=== PATIENT | female | born 1965 | race Caucasian/White ===

== ENCOUNTER → 2018-09-02 | Outpatient (CLI) | payer BC ==
[~2018-09-02] MED LIST: CIPR500 PO; CYCL10 PO; HYDACE5 PO; IBUP800 PO; METR500 PO; MULTI VITAMIN1 EACH PO; ONDA4 PO
== END ==
LOC: LAB SHORT 16:36 → LAB 16:36
DX: R19.7 Diarrhea, unspecified (principal); R11.10 Vomiting, unspecified
CPT/HCPCS: 87493

== ENCOUNTER 2018-11-30 08:27 | Day surgery (SDC) | payer BC ==
[~2018-11-30] VITALS: Ht 182.9 cm; Wt 68.5 kg
--- NOTE | 2018-11-30 09:24 | NUR ---
11/30/18 0924 Mauro Rivers 1ST IV ATTEMPT IN RFA UNSUCCESSFUL, ORSC.BDK 2ND IV ATTEMPT IN RAC SUCCESSFUL, ORSC.BDK
--- NOTE | 2018-11-30 10:29 | NUR ---
11/30/18 1029 Lisset Rust CECUM NOT REACHED. PROCEDURE ABORTED AT 1028
== END 2018-11-30 10:50 | disposition home or self-care (01) ==
LOC: ORSCSDS 08:27
PROVIDERS: Surgery
PROC: 0DJD8ZZ Inspection of Lower Intestinal Tract, Via Natural or Artificial Opening Endoscopic (ICD-10-PCS; principal; 2018-11-30 10:45)
DX: K57.20 Diverticulitis of large intestine with perforation and abscess without bleeding (principal); K56.699 Other intestinal obstruction unspecified as to partial versus complete obstruction; F17.210 Nicotine dependence, cigarettes, uncomplicated
CPT/HCPCS: J2405; J7120

== ENCOUNTER 2019-04-07 06:11 | Inpatient (IN) | payer BC ==
[~2019-04-07] VITALS: Ht 208.3 cm; Wt 68.3 kg
--- NOTE | 2019-04-07 07:05 | NUR ---
Ambulatory in Day Surgery Patient states colon prep results clear. History, Chart, Medications and Allergies reviewed before start of procedure. Lungs clear T/O to Auscultation. Patient confirms NPO status and agrees with scheduled surgery. Pre-Op teaching done. Pt verbalizes understanding.
--- NOTE | 2019-04-07 14:38 | NUR ---
"SURFACE SUPPLY BREATHING APPARATUS | REPORT FROM PAIGE FERMIN Handoff from Paige FERMIN. Patient sleeping. VSS. Responds to questions appropiately. Sites c/d/i. Preciado draining. DEVORA draining. Epidural running and checked settings with Merrick FERMIN. Warmer on patient. Pedal pulses good and circ check good in feet bilaterally. Patient denies pain and nausea."
--- NOTE | 2019-04-07 16:00 | NUR ---
EPIDURAL SITE QUARTER SIZE AMOUNT OF BLOOD AT EPIDURAL INSERTION SITE AT TIME OF ARRIVAL TO ROOM FROM PACU.
--- NOTE | 2019-04-07 16:59 | NUR ---
PT ARRIVED TO THE ROOM AT APPROXIMATELY 1530. ALERT AND ORIENTED AT UPON ARRIVING TO THE ROOM. VSS. FAMILY AT BEDSIDE. PT REPORTS PAIN IS MANAGED. DENIES NAUSEA, CHEST PAIN AND SOB. VSS. WILL CONTINUE TO MONITOR.
--- NOTE | 2019-04-07 18:37 | NUR ---
SHIFT SUMMARY PAIN HAS BEEN MANAGED WELL WITH EPIDURAL POST-OP. PT TOLERATING ICE CHIPS. DENIES NAUSEA. VSS. WILL MONITOR UNTIL REPORT TO ONCOMING RN.
--- NOTE | 2019-04-07 20:15 | NUR ---
epidural site with approx quarter sized area of bleed contained under dressing.pt has decreased sensation of moist vs dry at level directly above lower guaze dsngs and wound vac dsng. pt has limited sensation noted entire r leg with report of intermittent sensation of tingling. pt has limited gross motor control of r leg. pt is able to lift r leg slightly off bed and wiggles toes bilat. pedal pulses present bilat.
[2019-04-08 04:42] LABS: BASOPHILS ABSOLUTE AUTO 0.02 K/mm3 (0.00-0.23); BASOPHILS PERCENT AUTO 0 % (0-2); EOSINOPHILS ABSOLUTE AUTO 0.24 K/mm3 (0.00-0.68); EOSINOPHILS PERCENT AUTO 2 % (0-6); Hematocrit 38.6 % (33.0-51.0); Hemoglobin 12.5 g/dL (11.5-16.0); IMMATURE GRAN ABSOLUTE AUTO 0.04 K/mm3 (0.00-0.10); IMMATURE GRAN PERCENT AUTO 0 % (0-1); LYMPHOCYTES PERCENT AUTO 8 % (21-46); MONOCYTES PERCENT AUTO 13 % (4-13); Mean Corpuscular HGB Conc 32.4 g/dL (31.5-36.5); Mean Corpuscular Volume 93 fL (80-100); Mean Platelet Volume 11.3 fL (9.1-12.4); NEUTROPHILS ABSOLUTE AUTO 8.87 K/mm3 (1.96-9.15); NEUTROPHILS PERCENT AUTO 77 % (41-73); Platelet Count 176 K/mm3 (150-400); RDW Coefficient Variation 13.6 % (11.7-14.2); RDW Standard Deviation 46.8 fL (35.1-46.3); Red Blood Cell Count 4.16 M/mm3 (3.80-5.20); White Blood Cell Count 11.57 K/mm3 (4.00-11.30)
--- NOTE | 2019-04-08 04:53 | NUR ---
SUMMARY I SPOKE WITH DR BRISCOE AT 2144 TO ADVISE OF PTS NUMBNESS R THIGH WITH LIMITED GROSS MOTOR CONTROL NOTED WITH EPIDURAL CKS, ALSO NOTIFIED OF HYPOTENSION.DR BRISCOE ADVISED TO KEEP PT BEDREST TONIGHT AND RECOMMENDS DAY NURSE DISCUSS WITH IMMANUEL VARGAS ANESTHESIA DURING DAY THE POSSIBLITY OF DECREASING DOSING TO IMPROVE SAFETY OF ACTIVITY.
[2019-04-08 05:02] LABS: Anion Gap 3 mmol/L (6-16); Blood Urea Nitrogen 8 mg/dL (8-24); Bun/Creatinine Ratio 11.3 (12.0-20.0); CO2, Blood 30 mmol/L (21-32); Calcium, Blood 8.1 mg/dL (8.5-10.1); Chloride, Blood 108 mmol/L (98-108); Creatinine, Blood 0.71 mg/dL (0.40-1.00); Glomerular Filtration Rate >60 (60-); Glucose, Blood 105 mg/dL (70-99); Potassium, Blood 3.6 mmol/L (3.5-5.5); Sodium, Blood 141 mmol/L (136-145)
--- NOTE | 2019-04-08 10:47 | NUR ---
0700 EPIDURAL PATIENT REPORTS DECREASED SENSATION FROM 2" ABOVE UMBILICUS TO MID THIGH ON LEFT LEG. PATIENT REPORTS DECREASED SENSATION ENTIRE RIGHT LEG, GROSS MOVEMENT ONLY TO RIGHT LEG. PATIENT ABLE TO RAISE LEFT LEG OFF BED
--- NOTE | 2019-04-08 10:49 | NUR ---
EPIDURAL DECREASED SENSATION FROM 2" ABOVE UMBILICUS TO MID THIGH OF LEFT LEG. PATIENT ABLE TO RAISE LEFT LEG OFF BED. PATIENT WITH DECREASED SENSATION ENTIRE RIGHT LEG. GROSS MOVEMENT TO RIGHT LEG, UNABLE TO RAISE RIGHT LEG OFF OF BED
--- NOTE | 2019-04-08 10:52 | NUR ---
EPIDURAL DECREASED SENSATION FRO 2' above umbilicus to mid thigh of left leg. patient able to raise left leg off of bed. patient with decreased sensation to entire right leg, has gross movement but unable to raise off of bed
--- NOTE | 2019-04-08 10:53 | NUR ---
epidural DECREASED SENSATION FROM 2' above umbilicus to mid thigh of left leg. patient able to lift left leg off bed. patient with decreased sensation entire right leg. right leg with gross movement but unable to raise off of bed
--- NOTE | 2019-04-08 11:02 | NUR ---
EPIDURAL DECREASED SENSATION FROM 2" ABOVE UMBILICUS TO MID THIGH OF LEFT LEG. PATIENT ABLE TO RAISE LEFT LEG OFF OF BED. DECREASED SENSATION ENTIRE RIGHT LEG AND UNABLE TO LIFT OFF OF BED. PATIENT STATES SHE FEELS LIKE SLIGHTLY MORE MOVEMENT TO RIGHT LEG THAN SHE HAD AT 1000 ASSESSMENT.
--- NOTE | 2019-04-08 12:18 | NUR ---
EPIDURAL DECREASED SENSATION FROM 2' above umbilicus to mid thigh on left. patient able to raise left leg off of bed. decrease right leg sensation and patient with gross movement but unable to lift off of bed
--- NOTE | 2019-04-08 13:52 | NUR ---
epidural patient with decreased sensation from 2" above umbilicus to midthigh on bilateral legs/ patient able to raise left leg off the bed and able to raise right heel slightly off of bed
--- NOTE | 2019-04-08 14:42 | NUR ---
04/08/19 1442 Jess Griffin CHART VERIFICATIONS.
--- NOTE | 2019-04-08 17:53 | NUR ---
summary received telephone call from dr colvin anesthesia. discussed with dr colvin that patient can raise left leg off bed and can at this time bend right leg at knee and almost raise leg off of bed. patient has change in sensation at 2" ABOVE GROIN. PATIENT REPORTS CURRENT PAIN LEVEL AT 3/10. EPIDURAL TAPED IN PLACE, QUARTER SIZE OLD BLOODY DRAINAGE AT EPIDURAL INSERTION SITE. PREVENA WITH NO DRAINAGE. DEVORA DRAIN WITH SEROSANGUINOUS DRAINAGE
--- NOTE | 2019-04-09 07:37 | NUR ---
SHIFT SUMMARY: PT POD #2 FOR SIG COLECTOMY. PROVENA AND EDVORA DRAIN INTACT. DEVORA DRAINING SS FLUID. GALLAGHER DRAINING YELLOW URINE. EPIDURAL IN PLACE WITH SMALL AMT OF BLOODY DRG SURROUNDING SITE. NO LEAKAGE NOTED. PT REPORTS RIGHT LEG IS STILL NUMB TO MID ABD. REPORTS SENSATION TO LEFT LEG IS INTACT WITH MILD NUMBNESS TO LEFT SIDE OF ABD. WEAKNESS TO BLE. GIVEN TYLENOL AND GABAPENTIN IN ADDITION TO EPIDURAL. PT REPORTS PAIN IS MANAGEABLE. RATING 2-3/10 ON PAIN SCALE. DENIES N/V. KAELYN CLR LIQ DIET. WHEEZING TO LUNGS HEARD UPON AUSCULATION. HX OF SMOKING.
--- NOTE | 2019-04-09 08:34 | NUR ---
EPIDURAL DR. COOLEY IN TO ROUND ON PT. EPIDURAL SITE WNL. VERBAL ORDER TO DECREASE RATE TO 8 DOWN FROM 10.
--- NOTE | 2019-04-09 16:13 | NUR ---
SHIFT SUMMARY NO ACUTE CHANGES THIS SHIFT. PT CONT TO DO WELL. EPIDURAL MANAGING PAIN AND SITE WNL. PLAN IS FOR EPIDURAL TO BE DC'D TOMORROW. LAP SITES AND PREVENA DRESSING REMAIN CDI. DEVORA DRAIN WITH MINIMAL OUTPUT. PT KAELYN FULL LIQ AND PASSING GAS. UP TO CHAIR X1 TODAY. USES CALL LIGHT APPROPRIATELY.
--- NOTE | 2019-04-10 07:46 | NUR ---
SHIFT SUMMARY PT POD#3. AAOX4. DISCOMFORT CONTROLLED WITH EPIDURAL T/O SHIFT. NO NAUSEA/EMESIS. ABD INCISION WITH PREVENA C/D/I, NO OUTPUT. DEVORA SECURE WITH MODERATE AMOUNT SS OUT. TOLERATING DIET WELL + GOOD OUTPUT VIA GALLAGHER. EPIDURAL EXPECTED TO BE DC'D THIS AM. PT RESTED WELL T/O NIGHT. ENCOURAGE AMBULATION TODAY, DEEP BREATHING AND DIET TOLERATED. REPORT TO DAY SHIFT RN.
--- NOTE | 2019-04-11 07:49 | NUR ---
SHIFT SUMMARY POD#4. AAOX4. DRESSING TO ABD WITH PREVENA C/D/I, NO DRAINAGE. DEVORA SECURE WITH 110cc OUT THIS SHIFT SS. INDEPENDENT IN ROOM. GOOD PO INTAKE + OUTPUT. BM X2 PER PT YESTARDAY. VSS. NO ACUTE CHANGES THIS SHIFT. REPORT TO DAY SHIFT RN. PT AWAKE IN BED WITH HOT TEA WATCHING TV. CALL LIGHT IN REACH.
[2019-04-11] MEDS ORDERED: Norco 5-325 Ta1 EACH PO (07:52)
--- NOTE | 2019-04-11 09:48 | NUR ---
DISCHARGE PT UNDERSTANDS DISCHARGE INSTRUCTIONS. TOLERATING DIET, VOIDING, PASSING GAS, AND PAIN WELL MANAGED. AMBULATING INDEPENDTLY. SCRIPT AND DRSGS GIVEN.
== END 2019-04-11 10:30 | disposition home or self-care (01) | DRG 330 ==
LOC: PRE IP 06:11 → SURS 06:11 → PRE IP 07:30 → SURS 16:20
PROVIDERS: ADMIT Surgery
PROC: 0D1N474 Bypass Sigmoid Colon to Cutaneous with Autologous Tissue Substitute, Percutaneous Endoscopic Approach (ICD-10-PCS; 2019-04-07)
PROC: 0DTN4ZZ Resection of Sigmoid Colon, Percutaneous Endoscopic Approach (ICD-10-PCS; principal; 2019-04-07 07:30)
DX: K56.609 Unspecified intestinal obstruction, unspecified as to partial versus complete obstruction (principal); K57.20 Diverticulitis of large intestine with perforation and abscess without bleeding
CPT/HCPCS: 36415; 80048; 85025; 86850; 86900; 86901; 88307; A9270; J0690; J1650; J2250; J2704; J2710; J3010; J7030; J7120

== ENCOUNTER 2019-09-13 10:49 | Inpatient (IN) | payer BC ==
[~2019-09-13] VITALS: Ht 182.9 cm; Wt 72.4 kg
[~2019-09-13 10:49] MED LIST changes: +Norco 5-325 Ta1 EACH PO
[2019-09-13 12:41] LABS: BASOPHILS ABSOLUTE AUTO 0.07 K/mm3 (0.00-0.23); BASOPHILS PERCENT AUTO 0 % (0-2); EOSINOPHILS ABSOLUTE AUTO 0.03 K/mm3 (0.00-0.68); EOSINOPHILS PERCENT AUTO 0 % (0-6); Hemoglobin 12.3 g/dL (11.5-16.0); IMMATURE GRAN ABSOLUTE AUTO 0.63 K/mm3 (0.00-0.10); IMMATURE GRAN PERCENT AUTO 2 % (0-1); LYMPHOCYTES ABSOLUTE AUTO 1.94 K/mm3 (0.84-5.20); LYMPHOCYTES PERCENT AUTO 7 % (21-46); MONOCYTES ABSOLUTE AUTO 2.32 K/mm3 (0.16-1.47); MONOCYTES PERCENT AUTO 9 % (4-13); Mean Corpuscular HGB 30.8 pg (26.0-34.0); Mean Corpuscular HGB Conc 33.2 g/dL (31.5-36.5); Mean Corpuscular Volume 93 fL (80-100); Mean Platelet Volume 10.8 fL (9.1-12.4); NEUTROPHILS ABSOLUTE AUTO 21.85 K/mm3 (1.96-9.15); NEUTROPHILS PERCENT AUTO 82 % (41-73); Platelet Count 312 K/mm3 (150-400); RDW Coefficient Variation 13.1 % (11.7-14.2); RDW Standard Deviation 44.8 fL (35.1-46.3); White Blood Cell Count 26.84 K/mm3 (4.00-11.30)
[2019-09-13 12:56] LABS: Alanine Aminotransfer (ALT/SGP 69 U/L (12-78); Albumin, Blood 3.1 g/dL (3.4-5.0); Albumin/Globulin Ratio 0.7 (0.8-1.8); Alk Phos 238 U/L (50-136); Anion Gap 9 mmol/L (6-16); Aspartate Aminotrans (AST/SGOT 42 U/L (12-37); Bilirubin, Total 0.5 mg/dL (0.1-1.0); Blood Urea Nitrogen 6 mg/dL (8-24); Bun/Creatinine Ratio 9.2 (12.0-20.0); CO2, Blood 32 mmol/L (21-32); Calcium, Blood 8.9 mg/dL (8.5-10.1); Chloride, Blood 97 mmol/L (98-108); Creatinine, Blood 0.65 mg/dL (0.40-1.00); Globulin, Blood 4.5 g/dL (2.2-4.0); Glomerular Filtration Rate >60 (60-); Glucose, Blood 119 mg/dL (70-99); Potassium, Blood 2.9 mmol/L (3.5-5.5); Sodium, Blood 138 mmol/L (136-145); Total Protein, Blood 7.6 g/dL (6.4-8.2)
[2019-09-13 14:57] LABS: Adenovirus Not Detected (NOT DETECT); Bordetella pertussis Not Detected (NOT DETECT); Chlamydophila pneumoniae Not Detected (NOT DETECT); Coronavirus 229E Not Detected (NOT DETECT); Coronavirus HKU1 Not Detected (NOT DETECT); Coronavirus NL63 Not Detected (NOT DETECT); Coronavirus OC43 Not Detected (NOT DETECT); Human Metapneumovirus Not Detected (NOT DETECT); Human Rhinovirus/Enterovirus Detected (NOT DETECT); Influenza A Not Detected (NOT DETECT); Influenza A/2009-H1 Not Detected (NOT DETECT); Influenza A/H1 Not Detected (NOT DETECT); Influenza A/H3 Not Detected (NOT DETECT); Influenza B Not Detected (NOT DETECT); Mycoplasma pneumoniae Not Detected (NOT DETECT); Parainfluenza Virus 1 Not Detected (NOT DETECT); Parainfluenza Virus 2 Not Detected (NOT DETECT); Parainfluenza Virus 3 Not Detected (NOT DETECT); Parainfluenza Virus 4 Not Detected (NOT DETECT); Respiratory Syncytial Virus Not Detected (NOT DETECT)
--- NOTE | 2019-09-13 17:27 | NUR ---
SHIFT SUMMARY. 1603 PT ADMITTED TO MEDICAL FLOOR VIA BOYD, DAUGHTER AT BEDSIDE. PT SELF TRANSFERRED TO BED WITHOUT ISSUE. PT IS ON 4L O2 NC WITH SPO2 GREATER THAN 92%, PT DENIES SOB, RR WNL, SET UP ON CONT BIOX. BREATH SOUNDS R LUNG RHONCHI AND COARSE IN L LUNG. IV FLUIDS INFUSING.
[2019-09-14 05:33] LABS: BASOPHILS ABSOLUTE AUTO 0.04 K/mm3 (0.00-0.23); BASOPHILS PERCENT AUTO 0 % (0-2); EOSINOPHILS PERCENT AUTO 0 % (0-6); Hematocrit 31.9 % (33.0-51.0); Hemoglobin 10.3 g/dL (11.5-16.0); IMMATURE GRAN ABSOLUTE AUTO 0.84 K/mm3 (0.00-0.10); IMMATURE GRAN PERCENT AUTO 4 % (0-1); LYMPHOCYTES ABSOLUTE AUTO 1.36 K/mm3 (0.84-5.20); LYMPHOCYTES PERCENT AUTO 7 % (21-46); MONOCYTES ABSOLUTE AUTO 1.35 K/mm3 (0.16-1.47); MONOCYTES PERCENT AUTO 7 % (4-13); Mean Corpuscular HGB 29.9 pg (26.0-34.0); Mean Corpuscular HGB Conc 32.3 g/dL (31.5-36.5); Mean Corpuscular Volume 93 fL (80-100); Mean Platelet Volume 10.7 fL (9.1-12.4); NEUTROPHILS ABSOLUTE AUTO 17.32 K/mm3 (1.96-9.15); NEUTROPHILS PERCENT AUTO 83 % (41-73); Platelet Count 292 K/mm3 (150-400); RDW Coefficient Variation 13.4 % (11.7-14.2); RDW Standard Deviation 45.6 fL (35.1-46.3); Red Blood Cell Count 3.45 M/mm3 (3.80-5.20); White Blood Cell Count 20.91 K/mm3 (4.00-11.30)
--- NOTE | 2019-09-14 05:54 | NUR ---
SHIFT SUMMARY NO ACUTE EVENTS OVERNIGHT. PATIENT HAS STRESS INCONTINENCE BUT UP INDEPENDENT TO BSC. AAOX4. VSS. PATIENT ON 4L NC AT BEGINNING OF SHIFT SPO2 90%. WAS ABLE TO LOWER O2 TO 2L NC WITH PATIENT SPO2 94%. WILL CONTINUE TO MONITOR AND REPORT TO ONCOMING SHIFT
[2019-09-14 06:04] LABS: Alanine Aminotransfer (ALT/SGP 70 U/L (12-78); Albumin, Blood 2.4 g/dL (3.4-5.0); Albumin/Globulin Ratio 0.6 (0.8-1.8); Alk Phos 206 U/L (50-136); Anion Gap 7 mmol/L (6-16); Aspartate Aminotrans (AST/SGOT 41 U/L (12-37); Bilirubin, Total 0.3 mg/dL (0.1-1.0); Blood Urea Nitrogen 8 mg/dL (8-24); Bun/Creatinine Ratio 13.3 (12.0-20.0); CO2, Blood 28 mmol/L (21-32); Calcium, Blood 8.3 mg/dL (8.5-10.1); Chloride, Blood 104 mmol/L (98-108); Globulin, Blood 3.7 g/dL (2.2-4.0); Glomerular Filtration Rate >60 (60-); Glucose, Blood 134 mg/dL (70-99); Magnesium, Blood 2.1 mg/dL (1.6-2.4); Potassium, Blood 3.9 mmol/L (3.5-5.5); Sodium, Blood 139 mmol/L (136-145); Total Protein, Blood 6.1 g/dL (6.4-8.2)
--- NOTE | 2019-09-14 18:38 | NUR ---
SHIFT SUMMARY PT INDEPENDENT IN ROOM. SATS DROP WHEN SHE TAKES HER OXYGEN OFF TO LOW 80'S. DENIES ANY PAIN OR NAUSEA. PLACED IN ISOLATION PER PROTOCOL. ATTEMPTED TO NAP AT TIMES BUT STRUGGLED TO REST. WATCHING TV MOST OF THE DAY.
--- NOTE | 2019-09-15 06:05 | NUR ---
SHIFT SUMMARY NO ACUTE EVENTS OVERNIGHT. PATIENT SLEPT THROUGH ENTIRE SHIFT. PATIENT DID STATE THAT SHE WAS DEPRESSED ABOUT HER RESPIRATORY STATUS AND NEEDING O2. AAOX4. VSS. INDEPENDENT IN ROOM. WILL CONTINUE TO MONITOR.
[2019-09-15 08:33] LABS: Hematocrit 34.1 % (33.0-51.0); Mean Corpuscular HGB 29.7 pg (26.0-34.0); Mean Corpuscular HGB Conc 32.3 g/dL (31.5-36.5); Mean Corpuscular Volume 92 fL (80-100); Mean Platelet Volume 10.2 fL (9.1-12.4); Platelet Count 358 K/mm3 (150-400); RDW Coefficient Variation 13.6 % (11.7-14.2); RDW Standard Deviation 46.4 fL (35.1-46.3)
[2019-09-15 08:47] LABS: Anion Gap 6 mmol/L (6-16); Blood Urea Nitrogen 10 mg/dL (8-24); Bun/Creatinine Ratio 15.1 (12.0-20.0); CO2, Blood 29 mmol/L (21-32); Calcium, Blood 8.2 mg/dL (8.5-10.1); Chloride, Blood 103 mmol/L (98-108); Creatinine, Blood 0.66 mg/dL (0.40-1.00); Glomerular Filtration Rate >60 (60-); Glucose, Blood 113 mg/dL (70-99); Potassium, Blood 3.6 mmol/L (3.5-5.5); Sodium, Blood 138 mmol/L (136-145)
[2019-09-15 09:01] LABS: BAND PERCENT MAN 2 % (0-8); BASOPHILS PERCENT MAN 0 % (0-2); EOSINOPHILS PERCENT MAN 0 % (0-6); LYMPHOCYTES ABSOLUTE MAN 2.21 K/mm3 (0.84-5.20); LYMPHOCYTES PERCENT MAN 11 % (21-46); METAMYELOCYTE PERCENT MAN 2 % (0-0); MONOCYTES PERCENT MAN 5 % (4-13); MYELOCYTE PERCENT MAN 1 % (0-0); NEUTROPHILS ABSOLUTE MAN 16.28 K/mm3 (1.96-9.15); SEG NEUTROPHILS PERCENT MAN 79 % (41-73); TOTAL CELLS COUNTED 100
--- NOTE | 2019-09-15 16:48 | NUR ---
SHIFT SUMMARY- PT A/OX4, INDEP UP IN ROOM. LS DIMINISHED, PT REMAINS ON 3L N/C, OCC PRODUCTIVE COUGH BUT PT REPORTS HAS IMPROVED, SOB WITH EXERTION. PT DENIES ANY OTHER COMPLAINTS. NEW IV PLACED. SOLUMEDROL X1 GIVEN THIS SHIFT. NO OTHER ACUTE CHANGES THIS SHIFT.
--- NOTE | 2019-09-16 02:57 | NUR ---
09/15/19 PT RESTING COMFORTABLY IN BED, PT EDUCATED ON NEED TO CONSIDER SMOKING CESSATION WITH ACKNOWLEDGEMENT NOTED, WEARING O2 AT 3L/M PER NASAL CANNULA. VOICED FEELS BETTER TONIGHT, STILL SOB AT TIMES WITH ACTIVITY.
--- NOTE | 2019-09-16 04:21 | NUR ---
SHIFT SUMMARY: 54 Y/O RESTED COMFORTABLY ALL SHIFT WHILE WEARING O2 AT 3L/M PER NASAL CANNULA, PT ENCOURAGED TO CONSIDER SMOKING CESSATION (SMOKES 1-2 PACKS/DAY CURRENTLY) WITH ACKNOWLEDGEMENT NOTED, DENIES PAIN OR NAUSEA, HAPPY AND COOPERATIVE, BED LOW POSITION WITH CALL LIGHT AT SIDE.
[2019-09-16 05:14] LABS: Hematocrit 32.9 % (33.0-51.0); Hemoglobin 10.5 g/dL (11.5-16.0); Mean Corpuscular HGB 29.1 pg (26.0-34.0); Mean Corpuscular HGB Conc 31.9 g/dL (31.5-36.5); Mean Corpuscular Volume 91 fL (80-100); Mean Platelet Volume 10.2 fL (9.1-12.4); Platelet Count 403 K/mm3 (150-400); RDW Coefficient Variation 13.6 % (11.7-14.2); RDW Standard Deviation 45.6 fL (35.1-46.3); Red Blood Cell Count 3.61 M/mm3 (3.80-5.20); White Blood Cell Count 22.98 K/mm3 (4.00-11.30)
[2019-09-16 05:31] LABS: BAND PERCENT MAN 7 % (0-8); BASOPHILS PERCENT MAN 0 % (0-2); EOSINOPHILS PERCENT MAN 0 % (0-6); LYMPHOCYTES ABSOLUTE MAN 1.37 K/mm3 (0.84-5.20); LYMPHOCYTES PERCENT MAN 6 % (21-46); METAMYELOCYTE ABSOLUTE MAN 0.22 K/mm3 (0.00-0.00); METAMYELOCYTE PERCENT MAN 1 % (0-0); MONOCYTES ABSOLUTE MAN 0.45 K/mm3 (0.16-1.47); MONOCYTES PERCENT MAN 2 % (4-13); MYELOCYTE ABSOLUTE MAN 0.68 K/mm3 (0.00-0.00); MYELOCYTE PERCENT MAN 3 % (0-0); NEUTROPHILS ABSOLUTE MAN 20.22 K/mm3 (1.96-9.15); SEG NEUTROPHILS PERCENT MAN 81 % (41-73); TOTAL CELLS COUNTED 100
[2019-09-16 05:46] LABS: Alanine Aminotransfer (ALT/SGP 86 U/L (12-78); Albumin, Blood 2.4 g/dL (3.4-5.0); Albumin/Globulin Ratio 0.6 (0.8-1.8); Alk Phos 184 U/L (50-136); Anion Gap 7 mmol/L (6-16); Aspartate Aminotrans (AST/SGOT 56 U/L (12-37); Bilirubin, Total 0.3 mg/dL (0.1-1.0); Blood Urea Nitrogen 13 mg/dL (8-24); Bun/Creatinine Ratio 21.6 (12.0-20.0); CO2, Blood 30 mmol/L (21-32); Calcium, Blood 8.6 mg/dL (8.5-10.1); Chloride, Blood 102 mmol/L (98-108); Globulin, Blood 3.7 g/dL (2.2-4.0); Glomerular Filtration Rate >60 (60-); Glucose, Blood 125 mg/dL (70-99); Potassium, Blood 4.2 mmol/L (3.5-5.5); Sodium, Blood 139 mmol/L (136-145); Total Protein, Blood 6.1 g/dL (6.4-8.2)
--- NOTE | 2019-09-16 18:14 | NUR ---
SHIFT SUMMARY: NO ACUTE CHANGES TO REPORT THIS SHIFT. PT A&O; CALM AND COOPERATIVE WITH CARE; INDEPENDENT IN ROOM. NO C/O PAIN THIS SHIFT. PT CURRENTLY ON O2 @ 3L TO MAINTAIN SATS, PT ON ROOM AIR AT HOME; LUNGS DIM; CEDS. PO & IV ABX CONTINUING. WCTM.
--- NOTE | 2019-09-17 04:39 | NUR ---
SHIFT SUMMARY: 54 Y/O FEMALE RESTED COMFORTABLY ALL SHIFT, PT HAD ONE EPISODE NOT WEARING O2 WHILE UP BATHROOM WITH O2 SAT 84% WHICH QUICKLY IMPROVED TO 92 ON 3L/M PER NASAL CANNULA, PT HAS INCREASED DYPSNEA WITH SLIGHT ACTIVITY NOTED, LUNG SOUNDS ARE DIMINISHED THROUGHOUT, PT VOICED SHE WANTS TO RETURN HOME TODAY, PT VOICED SHE INTENDS TO RETURN SMOKING (THIS NURSE ENCOURAGED SMOKING CESSATION) UPON DISCHARGE, DENIES PAIN OR NAUSEA, BED LOW POSITION WITH CALL LIGHT AT SIDE.
[2019-09-17 05:05] LABS: BASOPHILS PERCENT AUTO 1 % (0-2); EOSINOPHILS ABSOLUTE AUTO 0.13 K/mm3 (0.00-0.68); EOSINOPHILS PERCENT AUTO 1 % (0-6); Hematocrit 34.4 % (33.0-51.0); IMMATURE GRAN ABSOLUTE AUTO 1.49 K/mm3 (0.00-0.10); IMMATURE GRAN PERCENT AUTO 7 % (0-1); LYMPHOCYTES ABSOLUTE AUTO 4.45 K/mm3 (0.84-5.20); LYMPHOCYTES PERCENT AUTO 21 % (21-46); MONOCYTES ABSOLUTE AUTO 1.22 K/mm3 (0.16-1.47); MONOCYTES PERCENT AUTO 6 % (4-13); Mean Corpuscular HGB 30.1 pg (26.0-34.0); NEUTROPHILS ABSOLUTE AUTO 13.49 K/mm3 (1.96-9.15); NEUTROPHILS PERCENT AUTO 65 % (41-73); Platelet Count 458 K/mm3 (150-400); RDW Coefficient Variation 13.6 % (11.7-14.2); Red Blood Cell Count 3.65 M/mm3 (3.80-5.20); White Blood Cell Count 20.88 K/mm3 (4.00-11.30)
[2019-09-17 05:10] LABS: Mean Corpuscular Volume 94 fL (80-100)
[2019-09-17 05:41] LABS: Alanine Aminotransfer (ALT/SGP 112 U/L (12-78); Albumin, Blood 2.5 g/dL (3.4-5.0); Albumin/Globulin Ratio 0.7 (0.8-1.8); Alk Phos 171 U/L (50-136); Anion Gap 7 mmol/L (6-16); Aspartate Aminotrans (AST/SGOT 63 U/L (12-37); Bilirubin, Total 0.3 mg/dL (0.1-1.0); Blood Urea Nitrogen 15 mg/dL (8-24); Bun/Creatinine Ratio 21.6 (12.0-20.0); CO2, Blood 30 mmol/L (21-32); Calcium, Blood 8.4 mg/dL (8.5-10.1); Chloride, Blood 104 mmol/L (98-108); Globulin, Blood 3.8 g/dL (2.2-4.0); Glomerular Filtration Rate >60 (60-); Glucose, Blood 81 mg/dL (70-99); Sodium, Blood 141 mmol/L (136-145); Total Protein, Blood 6.3 g/dL (6.4-8.2)
[2019-09-17] MEDS ORDERED: AZIT500 PO (14:44)
[2019-09-17] MEDS ORDERED: GUAI600T33 PO (14:45)
[2019-09-17] MEDS ORDERED: ALBU3IS INH (14:51)
--- NOTE | 2019-09-17 16:00 | NUR ---
PATIENT DISCHARGE: PATIENT DISCHARGED TO HOME THIS SHIFT. MEDICATION RECONCILIATION COMPLETED; MED LIST FAXED TO [facility]. DISCHARGE EDUCATION COMPLETED WITH PATIENT. PATIENT TRANSPORTED TO EXIT BY [facility] STAFF WITH WHEELCHAIR AT 1558. PATIENT DEPARTED [facility] VIA PRIVATE AUTO.
== END 2019-09-17 15:57 | disposition home or self-care (01) | DRG 190 ==
LOC: ER 10:49 → MEDS 14:24
PROVIDERS: Emergency Medicine; ADMIT Internal Medicine
DX: J44.1 Chronic obstructive pulmonary disease with (acute) exacerbation (principal); J18.9 Pneumonia, unspecified organism; J44.0 Chronic obstructive pulmonary disease with (acute) lower respiratory infection; E87.6 Hypokalemia; F17.210 Nicotine dependence, cigarettes, uncomplicated; R09.02 Hypoxemia; R91.1 Solitary pulmonary nodule; B97.89 Other viral agents as the cause of diseases classified elsewhere
CPT/HCPCS: 0099U; 36415; 71046; 80048; 80053; 83605; 83735; 85025; 87040; 87070; 87205; 94640; 94762; 96365; 96366; 96367; 96375; 99285-25; J0456; J0696; J1100; J1650; J1956; J2930; J3480; J7030; J7050

== ENCOUNTER 2022-04-28 13:50 | Inpatient (IN) | payer BC ==
[~2022-04-28] VITALS: Ht 185.4 cm; Wt 81.7 kg
[~2022-04-28 13:50] MED LIST changes: +ALBU3IS INH; +AZIT500 PO; +GUAI600T33 PO
[2022-04-28 15:14] LABS: Hematocrit 39.8 % (33.0-51.0); Hemoglobin 13.5 g/dL (11.5-16.0); Mean Corpuscular HGB 29.9 pg (26.0-34.0); Mean Corpuscular HGB Conc 33.9 g/dL (31.5-36.5); Mean Corpuscular Volume 88 fL (80-100); NRBC ABSOLUTE 0.02 K/mm3 (0.00-0.02); NRBC Auto 0.1 /100 WBC (0.0-0.2); Platelet Count 354 K/mm3 (150-400); RDW Coefficient Variation 13.2 % (11.7-14.2); Red Blood Cell Count 4.51 M/mm3 (3.80-5.20); White Blood Cell Count 37.59 K/mm3 (4.00-11.30)
[2022-04-28 15:48] LABS: Albumin, Blood 2.7 g/dL (3.4-5.0); Albumin/Globulin Ratio 0.5 (0.8-1.8); Bilirubin, Total 1.1 mg/dL (0.1-1.0); Bun/Creatinine Ratio 17.5 (12.0-20.0); Calcium, Blood 9.4 mg/dL (8.5-10.1); Creatinine, Blood 0.51 mg/dL (0.40-1.00); Globulin, Blood 5.2 g/dL (2.2-4.0); Potassium, Blood 5.8 mmol/L (3.5-5.5); Total Protein, Blood 7.9 g/dL (6.4-8.2)
[2022-04-28 17:24] LABS: BAND PERCENT MAN 8 % (0-8); BASOPHILS PERCENT MAN 0 % (0-2); EOSINOPHILS PERCENT MAN 0 % (0-6); LYMPHOCYTES ABSOLUTE MAN 1.12 K/mm3 (0.84-5.20); LYMPHOCYTES PERCENT MAN 3 % (21-46); METAMYELOCYTE ABSOLUTE MAN 0.37 K/mm3 (0.00-0.00); METAMYELOCYTE PERCENT MAN 1 % (0-0); MONOCYTES ABSOLUTE MAN 5.63 K/mm3 (0.16-1.47); MONOCYTES PERCENT MAN 15 % (4-13); MYELOCYTE ABSOLUTE MAN 0.37 K/mm3 (0.00-0.00); MYELOCYTE PERCENT MAN 1 % (0-0); NEUTROPHILS ABSOLUTE MAN 30.07 K/mm3 (1.96-9.15); SEG NEUTROPHILS PERCENT MAN 72 % (41-73); TOTAL CELLS COUNTED 100
[2022-04-28 18:33] LABS: Base Excess Venous 9.5 mmol/L; Bicarbonate Venous 31.4 mmol/L (24.0-30.0); PCO2 Venous 55.1 mmHg (38-42)
[2022-04-28 19:38] LABS: Influenza A, PCR NEGATIVE (NEGATIVE); Influenza B, PCR NEGATIVE (NEGATIVE); Resp Syncytial Virus, PCR NEGATIVE (NEGATIVE); SARS-Cov-2 (COVID-19) PCR, MMC NEGATIVE (NEGATIVE)
--- NOTE | 2022-04-28 21:58 | NUR ---
HANDOFF NOTE HANDOFF RECEIVED FROM PASTE WORKER COLT. PT ARRIVED TO FLOOR VIA GURNEY. 6 LPM O2 VIA NC. DEXTROSE INFUSING. PERSONAL POSSESSIONS WITH PT. PT ORIENTED TO UNIT. CALL BUTTON WITHIN REACH
[2022-04-29 02:01] LABS: Hematocrit 39.3 % (33.0-51.0); Hemoglobin 13.1 g/dL (11.5-16.0); Mean Corpuscular HGB 29.7 pg (26.0-34.0); Mean Corpuscular HGB Conc 33.3 g/dL (31.5-36.5); Mean Corpuscular Volume 89 fL (80-100); Mean Platelet Volume 10.5 fL (9.1-12.4); NRBC ABSOLUTE 0.02 K/mm3 (0.00-0.02); NRBC Auto 0.1 /100 WBC (0.0-0.2); Platelet Count 323 K/mm3 (150-400); RDW Coefficient Variation 13.1 % (11.7-14.2); Red Blood Cell Count 4.41 M/mm3 (3.80-5.20); White Blood Cell Count 37.07 K/mm3 (4.00-11.30)
[2022-04-29 02:30] LABS: Albumin, Blood 2.9 g/dL (3.4-5.0); Albumin/Globulin Ratio 0.7 (0.8-1.8); Bilirubin, Total 0.5 mg/dL (0.1-1.0); Bun/Creatinine Ratio 18.1 (12.0-20.0); Calcium, Blood 9.6 mg/dL (8.5-10.1); Creatinine, Blood 0.66 mg/dL (0.40-1.00); Globulin, Blood 4.4 g/dL (2.2-4.0); Total Protein, Blood 7.3 g/dL (6.4-8.2)
[2022-04-29 02:33] LABS: Potassium, Blood 3.7 mmol/L (3.5-5.5)
[2022-04-29 02:42] LABS: BAND PERCENT MAN 20 % (0-8); BASOPHILS PERCENT MAN 0 % (0-2); EOSINOPHILS PERCENT MAN 0 % (0-6); LYMPHOCYTES % ATYPICAL MANUAL 3 % (0-0); LYMPHOCYTES PERCENT MAN 7 % (21-46); METAMYELOCYTE ABSOLUTE MAN 1.11 K/mm3 (0.00-0.00); METAMYELOCYTE PERCENT MAN 3 % (0-0); MONOCYTES ABSOLUTE MAN 0.37 K/mm3 (0.16-1.47); MONOCYTES PERCENT MAN 1 % (4-13); MYELOCYTE ABSOLUTE MAN 0.37 K/mm3 (0.00-0.00); MYELOCYTE PERCENT MAN 1 % (0-0); SEG NEUTROPHILS PERCENT MAN 65 % (41-73); TOTAL CELLS COUNTED 100
--- NOTE | 2022-04-29 05:14 | NUR ---
SHIFT SUMMARY ADMITTED THIS SHIFT FOR DYSPNEA W/EXERTION. FULL CODE. IV ANTIB RX AND STEROIDS ARE SCHEDULED. SHE IS A&O X4. INDEPENDENT IN ROOM. DESATURATES WHEN OXYGEN IS REMOVED. ON ROOM AIR AT HOME. LUNGS ARE TIGHT AND WHEEZY. POSSIBLE HX OF COPD.
--- NOTE | 2022-04-29 18:57 | NUR ---
SHIFT SUMMARY: PT A/O X4 IND IN ROOM PLEASANT AND COOPERATIVE WITH CARE. PT REPORTED SHE HAD INCONTINENCE OF URINE POST GETTING LASIX THIS AM. PT HAD PRODUCTIVE COUGH THROUGHOUT THE DAY. LESSENED IN THE EVENING. PT O2 SATS WERE 85% ON 5 LPM VIA NC AT AFTERNOON VITALS. INCREASED O2 TO 7 LPM WHICH BROUGHT SATS ABOVE 90%. PT DENIED ANY SYMPTOMS OF SOB, CP AT THE TIME. PT RESTING IN BED AWAKE AND VISITING WITH A FRIEND IN HER ROOM WITH NO REPORTED CONCERNS AT SHIFT END.
--- NOTE | 2022-04-30 04:55 | NUR ---
SHIFT SUMMARY ADMITTED FOR DYSPNEA W/EXERTION. FULL CODE. IV ANTIB RX & STEROIDS ARE SCHEDULED. SHE IS ON 7 LPM O2 VIA NC. TELEMETRY: NSR @ 94 BPM. SHE IS INDEPENDENT IN ROOM. A&O X4. SHE REPORTS SHE MAY NEED BOWEL CARE, I WILL PASS THIS ON TO DAY RN. REGULAR DIET. HX OF COPD.
[2022-04-30 05:37] LABS: Bun/Creatinine Ratio 26.4 (12.0-20.0); Calcium, Blood 9.2 mg/dL (8.5-10.1); Creatinine, Blood 0.61 mg/dL (0.40-1.00); Potassium, Blood 3.7 mmol/L (3.5-5.5)
--- NOTE | 2022-05-01 04:26 | NUR ---
SHIFT SUMMARY ADMITTED FOR PNEUMONIA/COPD EXACERBATION. FULL CODE. PLAN IS FOR IV ANTIB RX AND STEROIDS, BREATHING TX'S. PT IS ON 6 LPM O2 VIA NC, RA @ HOME. SHE IS ON A REGULAR DIET, SHE IS A&O X4, INDEPENDENT IN ROOM. SHE IS ATTEMPTING TO TITRATE HER SUPPLEMENTAL O2 USE DOWN.
[2022-05-01 05:26] LABS: Hematocrit 37.7 % (33.0-51.0); Hemoglobin 12.4 g/dL (11.5-16.0); Mean Corpuscular HGB 29.8 pg (26.0-34.0); Mean Corpuscular HGB Conc 32.9 g/dL (31.5-36.5); Mean Corpuscular Volume 91 fL (80-100); Mean Platelet Volume 10.5 fL (9.1-12.4); Platelet Count 386 K/mm3 (150-400); RDW Coefficient Variation 13.2 % (11.7-14.2); RDW Standard Deviation 43.9 fL (35.1-46.3); Red Blood Cell Count 4.16 M/mm3 (3.80-5.20); White Blood Cell Count 41.12 K/mm3 (4.00-11.30)
[2022-05-01 05:51] LABS: BAND PERCENT MAN 21 % (0-8); BASOPHILS PERCENT MAN 0 % (0-2); EOSINOPHILS PERCENT MAN 0 % (0-6); LYMPHOCYTES ABSOLUTE MAN 3.28 K/mm3 (0.84-5.20); LYMPHOCYTES PERCENT MAN 8 % (21-46); MONOCYTES PERCENT MAN 0 % (4-13); MYELOCYTE ABSOLUTE MAN 0.82 K/mm3 (0.00-0.00); MYELOCYTE PERCENT MAN 2 % (0-0); SEG NEUTROPHILS PERCENT MAN 69 % (41-73); TOTAL CELLS COUNTED 100
[2022-05-01 06:12] LABS: Bun/Creatinine Ratio 25.4 (12.0-20.0); Calcium, Blood 9.2 mg/dL (8.5-10.1); Creatinine, Blood 0.75 mg/dL (0.40-1.00); Potassium, Blood 4.4 mmol/L (3.5-5.5)
--- NOTE | 2022-05-01 16:23 | NUR ---
CARE MANAGEMENT STATES PT UNABLE TO QUALIFY INSURANCE FOR OXYGEN. PT AGREED TO STAY AT LEAST 1 MORE DAY. WOULD BE APPRECIATIVE OF DR MASCORRO WRITING NOTE FOR FEW DAYS OFF WORK. UPDATED DR MASCORRO
--- NOTE | 2022-05-01 18:47 | NUR ---
PT UP AMBULATING ABOUT HALLS, PRESENTLY ON 4L REST AND 6L AMBULATION PER RESPIRATORY THERAPY. DISCHARGE PLANNING STATES PT INSURANCE NOT ALLOWING OXYGEN. PT STATES COST ABOUT $150/MONTH. STATES CANNOT AFFORD. AGREED TO STAY TO GET AT LEAST ONE MORE DAYS ANTIBIOTICS EITHER WAY. NO OTHER CONCERNS NOTED. BED IN LOW POSITION, CALLL LITE IN REACH CALLS APPROP
[2022-05-02 05:17] LABS: Hematocrit 37.6 % (33.0-51.0); Hemoglobin 12.2 g/dL (11.5-16.0); Mean Corpuscular HGB 29.7 pg (26.0-34.0); Mean Corpuscular HGB Conc 32.4 g/dL (31.5-36.5); Mean Corpuscular Volume 92 fL (80-100); Mean Platelet Volume 10.4 fL (9.1-12.4); Platelet Count 374 K/mm3 (150-400); RDW Coefficient Variation 13.3 % (11.7-14.2); RDW Standard Deviation 44.9 fL (35.1-46.3); Red Blood Cell Count 4.11 M/mm3 (3.80-5.20); White Blood Cell Count 33.23 K/mm3 (4.00-11.30)
[2022-05-02 05:45] LABS: BAND PERCENT MAN 12 % (0-8); BASOPHILS PERCENT MAN 0 % (0-2); EOSINOPHILS PERCENT MAN 0 % (0-6); LYMPHOCYTES ABSOLUTE MAN 3.65 K/mm3 (0.84-5.20); LYMPHOCYTES PERCENT MAN 11 % (21-46); METAMYELOCYTE ABSOLUTE MAN 0.33 K/mm3 (0.00-0.00); METAMYELOCYTE PERCENT MAN 1 % (0-0); MONOCYTES ABSOLUTE MAN 3.32 K/mm3 (0.16-1.47); MONOCYTES PERCENT MAN 10 % (4-13); MYELOCYTE ABSOLUTE MAN 0.66 K/mm3 (0.00-0.00); MYELOCYTE PERCENT MAN 2 % (0-0); NEUTROPHILS ABSOLUTE MAN 25.25 K/mm3 (1.96-9.15); SEG NEUTROPHILS PERCENT MAN 64 % (41-73); TOTAL CELLS COUNTED 100
--- NOTE | 2022-05-02 10:36 | NUR ---
DR MASCORRO IN ROOM. PT STATES FEELS SOME WORSE. DR REQUEST WE ASK RESP THERAPY FOR PERHAPS VEST PERCUSSION THERAPY. RT STATES NOT HELPFUL, PT HAS FLUTTER VALVE, POSS INCENTIVE SPIROMETRY. DR MASCORRO OKAYED.
[2022-05-02 12:44] LABS: Influenza A, PCR NEGATIVE (NEGATIVE); Influenza B, PCR NEGATIVE (NEGATIVE); Resp Syncytial Virus, PCR NEGATIVE (NEGATIVE); SARS-Cov-2 (COVID-19) PCR, MMC NEGATIVE (NEGATIVE)
--- NOTE | 2022-05-02 19:29 | NUR ---
PT HAS BEEN QUITE PLEASANT THIS AFT. MORE AN THIS AM. FELT WORSE THIS AM. IMPROVED T/O DAY. O2 WAS AT 8L AT REST THIS AM. NOW DOWN TO 6L. TOOK SHOWER TODAY. STATES DID WELL. FEELS IF MIGHT HAVE IMPROVED SOME. GOT HER ON I/S EVERY COMMER[employer] BREAK ON TV . ALSO HAS THE FLUTTER VALVE ALSO. ENCOURAGED TO KEEP REGULAR USE. PT UP WALKING ABOUT ROOM. NO DISTRESS NOTED. BED IN LOW POSITION, CALL LITE IN REACH, CALLS APPROP
--- NOTE | 2022-05-03 05:03 | NUR ---
SHIFT SUMMARY 57 YR F ADMITTED ON 04/28/22 FOR EXACERBATION OF COPD/PNEUMONIA. FULL CODE. NO ACUTE CHANGES THIS SHIFT. PT IS DOING WELL ON 5 L O2 AND IS HOPING TO DISCHARGE TOMORROW. SHE STATES THAT SHE WANTS TO GET LOTS OF REST SO SHE CAN GET BETTER AND GO HOME. SHE IS PLEASANT AND COOPERATIVE AND PRO ACTIVE IN HER OWN CARE.
[2022-05-03 05:08] LABS: Hematocrit 37.3 % (33.0-51.0); Mean Corpuscular HGB 29.6 pg (26.0-34.0); Mean Corpuscular HGB Conc 32.2 g/dL (31.5-36.5); Mean Corpuscular Volume 92 fL (80-100); Platelet Count 341 K/mm3 (150-400); RDW Coefficient Variation 13.5 % (11.7-14.2); RDW Standard Deviation 45.5 fL (35.1-46.3); Red Blood Cell Count 4.06 M/mm3 (3.80-5.20); White Blood Cell Count 28.67 K/mm3 (4.00-11.30)
--- NOTE | 2022-05-03 19:17 | NUR ---
SUMMARY- PT A/O X4, INDEPENDANT IN ROOM. TOLERATING FOOD AND FLUIDS. LUNGS DIM IN BASES. COUGHING OUT MOD AMOUNT OF LIGHT YELLOW/GREEN OPAQUE SECRETIONS. SENT SPUTUM TODAY. OXYGEN FROM 6L THIS AM TO 4L, SATTING 94%. PT C/O TIGHTNESS IN UPPER CHEST AND FEELS THERE IS SOMETHING WRONG AND THIS IS NOT FROM A SMOKING HISTORY BUT MAYBE ANTTHER ETIOLOGY. PT SPOKE WITH DR FUNK WITH HER CONCERNS AND MULT LABS ORDERED TO FOLLOW UP WITH. VSS. HOPING TO GO HOME BUT UNABLE TO WEAN OFF OXYGEN AND INSURANCE WONT PAY FOR HOME O2 IF ITS AN ACUTE PROCESS, ONLY A CHRONIC CONDITION. REPORTED ALL TO FLETCHER FERMIN.
--- NOTE | 2022-05-04 04:52 | NUR ---
SHIFT SUMMARY 57 YR F ADMITTED ON 04/28/22 FOR COPD EXACERBATION/PNEUMONIA. FULL CODE.PT IS FRUSTRATED THAT SHE IS NOT GETTING BETTER FASTER AND THAT SHE DOESN'T KNOW EXACTLY WHAT IS WRONG. DOC ORDERED EXTENSIVE LABS FOR THIS A.M. PT IS INDEPENDANT IN HER ROOM AND IS COOPERATIVE W/ CARE. O2 WAS REDUCED YESTERDAY TO 4 L AND PT IS TOLERATING IT WELL.
[2022-05-04 05:39] LABS: Hematocrit 35.6 % (33.0-51.0); Hemoglobin 11.5 g/dL (11.5-16.0); Mean Corpuscular HGB 29.6 pg (26.0-34.0); Mean Corpuscular HGB Conc 32.3 g/dL (31.5-36.5); Mean Corpuscular Volume 92 fL (80-100); Mean Platelet Volume 9.7 fL (9.1-12.4); Platelet Count 318 K/mm3 (150-400); RDW Coefficient Variation 13.5 % (11.7-14.2); RDW Standard Deviation 45.4 fL (35.1-46.3); Red Blood Cell Count 3.88 M/mm3 (3.80-5.20); White Blood Cell Count 26.16 K/mm3 (4.00-11.30)
[2022-05-04 06:00] LABS: BAND PERCENT MAN 5 % (0-8); BASOPHILS PERCENT MAN 0 % (0-2); EOSINOPHILS PERCENT MAN 0 % (0-6); LYMPHOCYTES ABSOLUTE MAN 4.18 K/mm3 (0.84-5.20); LYMPHOCYTES PERCENT MAN 16 % (21-46); METAMYELOCYTE ABSOLUTE MAN 0.52 K/mm3 (0.00-0.00); METAMYELOCYTE PERCENT MAN 2 % (0-0); MONOCYTES PERCENT MAN 5 % (4-13); MYELOCYTE ABSOLUTE MAN 0.26 K/mm3 (0.00-0.00); MYELOCYTE PERCENT MAN 1 % (0-0); NEUTROPHILS ABSOLUTE MAN 19.88 K/mm3 (1.96-9.15); SEG NEUTROPHILS PERCENT MAN 71 % (41-73); TOTAL CELLS COUNTED 100
[2022-05-04 06:25] LABS: Albumin, Blood 2.5 g/dL (3.4-5.0); Albumin/Globulin Ratio 0.8 (0.8-1.8); Bilirubin, Total 0.3 mg/dL (0.1-1.0); Bun/Creatinine Ratio 24.7 (12.0-20.0); C-REACTIVE PROTEIN, EXT RANGE 2.39 mg/dL (0.000-0.300); Calcium, Blood 8.7 mg/dL (8.5-10.1); Creatinine, Blood 0.69 mg/dL (0.40-1.00); Globulin, Blood 3.1 g/dL (2.2-4.0); Potassium, Blood 4.6 mmol/L (3.5-5.5); Total Protein, Blood 5.6 g/dL (6.4-8.2)
[2022-05-04 19:03] LABS: Adenovirus Not Detected (NOT DETECT); Bordetella pertussis Not Detected (NOT DETECT); Chlamydophila pneumoniae Not Detected (NOT DETECT); Coronavirus 229E Not Detected (NOT DETECT); Coronavirus HKU1 Not Detected (NOT DETECT); Coronavirus NL63 Not Detected (NOT DETECT); Coronavirus OC43 Not Detected (NOT DETECT); Human Metapneumovirus Not Detected (NOT DETECT); Human Rhinovirus/Enterovirus Not Detected (NOT DETECT); Influenza A/2009-H1 Not Detected (NOT DETECT); Influenza A/H1 Not Detected (NOT DETECT); Influenza A/H3 Not Detected (NOT DETECT); Influenza B Not Detected (NOT DETECT); Mycoplasma pneumoniae Not Detected (NOT DETECT); Parainfluenza Virus 1 Not Detected (NOT DETECT); Parainfluenza Virus 2 Not Detected (NOT DETECT); Parainfluenza Virus 3 Not Detected (NOT DETECT); Parainfluenza Virus 4 Not Detected (NOT DETECT); Respiratory Syncytial Virus Not Detected (NOT DETECT); SARS-Cov-2 (COVID-19), BioFire Not Detected (NOT DETECT)
--- NOTE | 2022-05-04 20:13 | NUR ---
SUMMARY- PT A/O X4, INDEPENDANT IN ROOM. TOLERATING FOOD ANF FLUIDS. OXYGEN 4L SATTING 92-94%, UNABLE TO WEAN OFF O2. PT COUGHING UP SMALL AMOUNT OPAQUE OFF WHITE LIGHT YELLOW/GREEN. LUNGS SEVERELY DIM POST 2/3 LUNG FIELD. OCC EXP WHEEZE UPPER. ROUTINE NEBS. CALLED DR HARTMAN FOR PULM CONSULT AT 0915 THIS AM. HE DID NOT EVAL PT THIS SHIFT. CT COMPLETED OF CHEST. LIKELY NEEDS OXYGEN FOR HOME USE- NEED TO WORK OUT FINANCIAL COVERAGE. REPORTED TO FLETCHER FERMIN.
--- NOTE | 2022-05-05 05:27 | NUR ---
NO ACUTE CHANGES DURING THE NIGHT. VSS. PT IS MONITORING OXYGEN SATS IN THE ROOM WITH HOME OXIMETER. PT IS INDEPENDENT IN THE ROOM.
[2022-05-05 08:11] LABS: HIV AB/P24 AG SCREEN Non Reactive (Non Reactive)
[2022-05-05 08:28] LABS: Hematocrit 41.1 % (33.0-51.0); Hemoglobin 12.9 g/dL (11.5-16.0); Mean Corpuscular HGB 29.3 pg (26.0-34.0); Mean Corpuscular HGB Conc 31.4 g/dL (31.5-36.5); Mean Corpuscular Volume 93 fL (80-100); Mean Platelet Volume 9.7 fL (9.1-12.4); Platelet Count 345 K/mm3 (150-400); RDW Coefficient Variation 13.8 % (11.7-14.2); RDW Standard Deviation 46.9 fL (35.1-46.3); White Blood Cell Count 22.67 K/mm3 (4.00-11.30)
[2022-05-05 10:11] LABS: HBSAG SCREEN Negative (Negative); HCV AB <0.1 (0.0-0.9); HEP B CORE AB, TOT Negative (Negative)
[2022-05-05 12:11] LABS: % CD 4 POS. LYMPH. 51.8 % (30.8-58.5); ABSOLUTE CD 4 HELPER 2227 /uL (359-1519); BASOS 0 % (Not Estab.); EOS 3 % (Not Estab.); EOS (ABSOLUTE) 0.8 x10E3/uL (0.0-0.4); HEMATOCRIT 36.3 % (34.0-46.6); HEMATOLOGY COMMENTS: Note: (.); HEMOGLOBIN 11.5 g/dL (11.1-15.9); LYMPHS 17 % (Not Estab.); LYMPHS (ABSOLUTE) 4.3 x10E3/uL (0.7-3.1); MCH 28.8 pg (26.6-33.0); MCHC 31.7 g/dL (31.5-35.7); MCV 91 fL (79-97); MONOCYTES 7 % (Not Estab.); MONOCYTES(ABSOLUTE) 1.8 x10E3/uL (0.1-0.9); MYELOCYTES 4 % (0 - 0); NEUTROPHILS 69 % (Not Estab.); NEUTROPHILS (ABSOLUTE) 17.5 x10E3/uL (1.4-7.0); PLATELETS 356 x10E3/uL (150-450); RBC 3.99 x10E6/uL (3.77-5.28); RDW 12.3 % (11.7-15.4); WBC 25.4 x10E3/uL (3.4-10.8)
--- NOTE | 2022-05-05 17:51 | NUR ---
SHIFT SUMMARY A&OX4. INDEPENDENT IN ROOM. ON 4L O2 VIA NC. PATIENT SELF MONITORING SPO2 WITH PERSONAL PULSE OX. RECEIVING IV ANTIBIOTICS. PATIENT WILL NEED PICC PLACEMENT FOR DEPUTY CHIEF MAGISTRATE ANTIBIOTICS. VSS. WILL CONTINUE TO MONITOR.
[2022-05-06 05:12] LABS: Hematocrit 37.2 % (33.0-51.0); Hemoglobin 11.8 g/dL (11.5-16.0); Mean Corpuscular HGB 29.4 pg (26.0-34.0); Mean Corpuscular HGB Conc 31.7 g/dL (31.5-36.5); Mean Corpuscular Volume 93 fL (80-100); Mean Platelet Volume 9.9 fL (9.1-12.4); Platelet Count 322 K/mm3 (150-400); RDW Coefficient Variation 13.8 % (11.7-14.2); RDW Standard Deviation 47.1 fL (35.1-46.3); Red Blood Cell Count 4.02 M/mm3 (3.80-5.20); White Blood Cell Count 20.52 K/mm3 (4.00-11.30)
[2022-05-06 05:42] LABS: Albumin, Blood 2.6 g/dL (3.4-5.0); Albumin/Globulin Ratio 0.8 (0.8-1.8); Bilirubin, Total 0.3 mg/dL (0.1-1.0); Bun/Creatinine Ratio 28.3 (12.0-20.0); Calcium, Blood 8.8 mg/dL (8.5-10.1); Creatinine, Blood 0.71 mg/dL (0.40-1.00); Globulin, Blood 3.4 g/dL (2.2-4.0); Potassium, Blood 4.7 mmol/L (3.5-5.5)
[2022-05-06 05:59] LABS: BASOPHILS PERCENT MAN 0 % (0-2); EOSINOPHILS PERCENT MAN 0 % (0-6); LYMPHOCYTES ABSOLUTE MAN 2.66 K/mm3 (0.84-5.20); LYMPHOCYTES PERCENT MAN 13 % (21-46); MONOCYTES ABSOLUTE MAN 1.02 K/mm3 (0.16-1.47); MONOCYTES PERCENT MAN 5 % (4-13); MYELOCYTE ABSOLUTE MAN 0.41 K/mm3 (0.00-0.00); MYELOCYTE PERCENT MAN 2 % (0-0); NEUTROPHILS ABSOLUTE MAN 16.41 K/mm3 (1.96-9.15); SEG NEUTROPHILS PERCENT MAN 80 % (41-73); TOTAL CELLS COUNTED 100
--- NOTE | 2022-05-06 06:21 | NUR ---
SHIFT SUMMARY NOC: PT SLEPT MOST OF NIGHT. UP AD KAREL IN ROOM AND HALLWAY. NO ACUTE EVENTS. AWAITING PICC PLACEMENT TODAY.
--- NOTE | 2022-05-06 17:47 | NUR ---
SHIFT SUMMARY PT SATING WELL ON 2L O2 VIA NC TODAY. AMBULATING IN ROOM INDEPENDENTLY. POWERGLIDE PLACED TODAY. DISCHARGE PLANNING WORKING ON A PLAN FOR 2 WEEKS OF OUTPT ABX. PT PLEASANT & COOPERATIVE. DENIES NEEDS AT THIS TIME. VS REVIEWED. CALL LIGHT IN REACH.
--- NOTE | 2022-05-07 06:16 | NUR ---
SHIFT SUMMARY NOC: PT SLEPT ALL NIGHT. 2L NC. AMBULATES IN [place] FREQUENTLY. CASE MANAGEMENT ON BOARD FOR HOME ABX PLANNING. NO ACUTE EVENTS.
--- NOTE | 2022-05-07 18:20 | NUR ---
SHIFT SUMMARY PATIENT DENIES PAIN, NAUSEA AND SHORTNESS OF BREATH AT REST. PATIENT REPORTS SOME SHORTNESS OF BREATH WITH ACTIVITY. PATIENT IS ON 2L VIA N/C, MAINTAINING SATS ABOVE 95%. PATIENT IS INDEPENDENT IN ROOM. PATIENT HAD POWERGLIDE TO NEHEMIAS PLACED YESTERDAY, 05/06, DUE TO ABX. PATIENT EAGER AND ANXIOUS TO GO HOME. PATIENT IS EATING AND DRINKING WELL. PATIENT WILL FREQUENTLY AMBULATE IN HALLWAY. PATIENT IS PLEASANT AND COOPERATIVE WITH CARE.
[2022-05-08 04:41] LABS: Hematocrit 36.3 % (33.0-51.0); Hemoglobin 11.8 g/dL (11.5-16.0); Mean Corpuscular HGB 29.6 pg (26.0-34.0); Mean Corpuscular HGB Conc 32.5 g/dL (31.5-36.5); Mean Corpuscular Volume 91 fL (80-100); Platelet Count 307 K/mm3 (150-400); RDW Coefficient Variation 13.8 % (11.7-14.2); RDW Standard Deviation 45.9 fL (35.1-46.3); Red Blood Cell Count 3.98 M/mm3 (3.80-5.20); White Blood Cell Count 17.03 K/mm3 (4.00-11.30)
[2022-05-08 05:07] LABS: Albumin, Blood 2.8 g/dL (3.4-5.0); Albumin/Globulin Ratio 0.9 (0.8-1.8); Bilirubin, Total 0.4 mg/dL (0.1-1.0); Bun/Creatinine Ratio 33.7 (12.0-20.0); Calcium, Blood 8.7 mg/dL (8.5-10.1); Creatinine, Blood 0.65 mg/dL (0.40-1.00); Globulin, Blood 3.1 g/dL (2.2-4.0); Potassium, Blood 4.2 mmol/L (3.5-5.5); Total Protein, Blood 5.9 g/dL (6.4-8.2)
--- NOTE | 2022-05-08 05:42 | NUR ---
SHIFT SUMMARY NOC: PT SLEPT ALL NIGHT. PT HAD ONE EPISODE OF INCONTINENCE INTO BRIEF. 2L NC. INDEPENDENT IN ROOM AND HALLWAY. NO ACUTE EVENTS.
--- NOTE | 2022-05-08 18:42 | NUR ---
SHIFT SUMMARY PATIENT DENIES PAIN, NAUSEA, AND SHORTNESS OF BREATH AT REST. PATIENT REPORTS MINIMAL SHORTNESS OF BREATH WITH ACTIVITY. PATIENT ON 2L N/C MAINTAINING SATS ABOVE 93%. PATIENT IS INDEPENDENT IN ROOM. PATIENT MET WITH PUBLICIST, SEE NOTES. PATIENT ANTICIPATED TO DISCHARGE TOMORROW. OXYGEN DELIVERED. PATIENT IS EATING AND DRINKING WELL. PATIENT IS PLEASANT AND COOPERATIVE WITH CARE.
[2022-05-09 04:49] LABS: Hematocrit 35.7 % (33.0-51.0); Hemoglobin 11.6 g/dL (11.5-16.0); Mean Corpuscular HGB 29.8 pg (26.0-34.0); Mean Corpuscular HGB Conc 32.5 g/dL (31.5-36.5); Mean Corpuscular Volume 92 fL (80-100); Mean Platelet Volume 9.8 fL (9.1-12.4); Platelet Count 288 K/mm3 (150-400); RDW Coefficient Variation 13.8 % (11.7-14.2); RDW Standard Deviation 46.3 fL (35.1-46.3); Red Blood Cell Count 3.89 M/mm3 (3.80-5.20); White Blood Cell Count 16.19 K/mm3 (4.00-11.30)
--- NOTE | 2022-05-09 05:00 | NUR ---
SHIFT SUMMARY: PT IS A/OX4. SHE HAS BEEN PLEASANT AND COOPERATIVE WITH ALL CARE. SHE IS INDEPENDENT IN THE ROOM. SHE IS ON 2L OF 02 TO STAY >92%. THE PT HAS NO C/O PAIN. SHE IS A HIGHLY PROBABLE DC HOME TODAY. CALL LIGHT IS WITHIN REACH AND WE'LL CONTINUE TO MONITOR.
[2022-05-09 05:20] LABS: BASOPHILS PERCENT MAN 0 % (0-2); EOSINOPHILS ABSOLUTE MAN 0.32 K/mm3 (0.00-0.68); EOSINOPHILS PERCENT MAN 2 % (0-6); LYMPHOCYTES ABSOLUTE MAN 4.85 K/mm3 (0.84-5.20); LYMPHOCYTES PERCENT MAN 30 % (21-46); MONOCYTES ABSOLUTE MAN 1.29 K/mm3 (0.16-1.47); MONOCYTES PERCENT MAN 8 % (4-13); NEUTROPHILS ABSOLUTE MAN 9.71 K/mm3 (1.96-9.15); SEG NEUTROPHILS PERCENT MAN 60 % (41-73); TOTAL CELLS COUNTED 100
[2022-05-09 05:35] LABS: Albumin, Blood 2.7 g/dL (3.4-5.0); Albumin/Globulin Ratio 0.9 (0.8-1.8); Bilirubin, Total 0.3 mg/dL (0.1-1.0); Bun/Creatinine Ratio 26.5 (12.0-20.0); Calcium, Blood 8.7 mg/dL (8.5-10.1); Creatinine, Blood 0.64 mg/dL (0.40-1.00); Free Thyroxine 0.92 ng/dL (0.70-1.60); Globulin, Blood 3.1 g/dL (2.2-4.0); Potassium, Blood 4.2 mmol/L (3.5-5.5); Thyroid Stimulating Hormone 1.66 uIU/mL (0.360-4.800); Total Protein, Blood 5.8 g/dL (6.4-8.2)
[2022-05-09] MEDS ORDERED: ALBU2.5V5 INH (10:35)
[2022-05-09] MEDS ORDERED: BUDESONIDE0.5 MG/2 M INH (10:36)
[2022-05-09] MEDS ORDERED: GUAI600T33 PO (10:37)
[2022-05-09] MEDS ORDERED: TAZICEF2 G2 IV (10:37)
[2022-05-09] MEDS ORDERED: IPRAT-ALBUT 0.5-3 ML INH (10:39)
[2022-05-09] MEDS ORDERED: VISBIOME 112.51 EACH PO (10:41)
[2022-05-09] MEDS ORDERED: VITAMIN D5000 UNIT PO (10:41)
[2022-05-09] MEDS ORDERED: DELTASONE20 MG PO (10:41)
--- NOTE | 2022-05-09 13:17 | NUR ---
DISCHARGE PATIENT TRANSPORTED VIA WHEELCHAIR TO [facility]. DISCHARGE INSTRUCTIONS EXPLAINED TO PATIENT. PATIENT STATED UNDERSTANDING. PACKET SENT WITH PATIENT. POWERGLIDE TO NEHEMIAS PATENT AND INTACT AT TIME OF DISCHARGE. DRESSING CHANGE TO POWERGLIDE DONE BEFORE DISCHARGE. PATIENT TO SELF-ADMINISTER ABX AT HOME. PATIENT EDUCATED ON HOW TO ADMINSITER. MEDICATIONS FAXED TO [facility]. PATIENT TO ESTABLISH PCP AND SCHEDULE APPOINTMENT.
== END 2022-05-09 13:15 | disposition home or self-care (01) | DRG 871 ==
LOC: ER 13:50 → MEDS 20:10
PROVIDERS: Emergency Medicine; Internal Medicine; Student in an Organized Health Care Education/Training Program; ADMIT Internal Medicine
DX: A41.52 Sepsis due to Pseudomonas (principal); J15.1 Pneumonia due to Pseudomonas; J96.01 Acute respiratory failure with hypoxia; R65.20 Severe sepsis without septic shock; F17.210 Nicotine dependence, cigarettes, uncomplicated; A63.0 Anogenital (venereal) warts; J30.9 Allergic rhinitis, unspecified; E87.5 Hyperkalemia; Z20.822 Contact with and (suspected) exposure to COVID-19; J43.9 Emphysema, unspecified; R94.5 Abnormal results of liver function studies; I50.9 Heart failure, unspecified; Z71.6 Tobacco abuse counseling; Z87.19 Personal history of other diseases of the digestive system; Z90.711 Acquired absence of uterus with remaining cervical stump; Z90.722 Acquired absence of ovaries, bilateral; Z98.890 Other specified postprocedural states; Z90.49 Acquired absence of other specified parts of digestive tract; Z88.2 Allergy status to sulfonamides; Z79.899 Other long term (current) drug therapy; Z79.51 Long term (current) use of inhaled steroids; Z79.2 Long term (current) use of antibiotics
CPT/HCPCS: 0202U; 0241U; 36415; 71045; 71260; 74177; 76705; 80048; 80053; 82550; 82607; 82746; 82803; 83605; 83880; 84145; 84439; 84443; 84484; 85007; 85025; 85027; 85651; 86140; 86361; 86704; 86708; 86803; 87040; 87070; 87077; 87186; 87205; 87340; 87389; 93005; 93010; 93306; 94640; 94664; 94668; 94760; 94761; 94762; 96365-59; 96367-59; 96372-59; 96375-59; 98960; 99285-25; 99407; A9270; C1751; J0456; J0610; J0692; J0696; J0713; J1650; J1815; J1940; J2920; J2930; J7050; J7060; J7512; Q9967

== ENCOUNTER → 2022-12-17 | Outpatient (CLI) | payer BC ==
[~2022-12-17] MED LIST changes: +ALBU2.5V5 INH; +BUDESONIDE0.5 MG/2 M INH; +DELTASONE20 MG PO; +IPRAT-ALBUT 0.5-3 ML INH; +TAZICEF2 G2 IV; +VISBIOME 112.51 EACH PO; +VITAMIN D5000 UNIT PO
== END | disposition home or self-care (01) ==
LOC: EDSTATUS 07:20 → LAB SHORT 13:15 → LAB 13:15
DX: J06.9 Acute upper respiratory infection, unspecified (principal)
CPT/HCPCS: 87070; 87205

== ENCOUNTER 2024-05-13 17:48 | Inpatient (IN) | payer OTHER ==
[~2024-05-13] VITALS: Ht 188 cm; Wt 79.0 kg
[~2024-05-13 17:48] MED LIST changes: -ALBU90OI INH; -CEFD300 PO; -DOCUZEN 8.6-501 EACH PO; -NYSTATIN100000 U13 MT; -Prednisone10 MG PO; -TRELEGY ELLIPT1 EAC1 INH; -Vitamin D1000 UNI1 PO
[2024-05-13] MEDS ORDERED: Ipratropium/Albuterol SulF 2.5-0.5MG/3 ML Amp INH ONE (18:25)
[2024-05-13] MEDS ORDERED: MethylPREDNISolone Sod Succ 125 MG Vial IV ONE (18:25)
[2024-05-13 18:32] LABS: RDW Coefficient Variation 13.5 % (11.7-14.2)
[2024-05-13 18:40] LABS: Hematocrit 41.2 % (33.0-51.0); Hemoglobin 13.8 g/dL (11.5-16.0); Mean Corpuscular HGB 30.3 pg (26.0-34.0); Mean Corpuscular HGB Conc 33.5 g/dL (31.5-36.5); Mean Corpuscular Volume 90 fL (80-100); Mean Platelet Volume 10.1 fL (9.1-12.4); Platelet Count 410 K/mm3 (150-400); RDW Standard Deviation 44.4 fL (35.1-46.3); Red Blood Cell Count 4.56 M/mm3 (3.80-5.20); White Blood Cell Count 37.42 K/mm3 (4.00-11.30)
[2024-05-13 19:01] LABS: BAND PERCENT MAN 2 % (0-8); BASOPHILS PERCENT MAN 0 % (0-2); EOSINOPHILS PERCENT MAN 0 % (0-6); LYMPHOCYTES ABSOLUTE MAN 2.24 K/mm3 (0.84-5.20); LYMPHOCYTES PERCENT MAN 6 % (21-46); MONOCYTES ABSOLUTE MAN 1.87 K/mm3 (0.16-1.47); MONOCYTES PERCENT MAN 5 % (4-13); MYELOCYTE ABSOLUTE MAN 0.37 K/mm3 (0.00-0.00); MYELOCYTE PERCENT MAN 1 % (0-0); NEUTROPHILS ABSOLUTE MAN 32.92 K/mm3 (1.96-9.15); SEG NEUTROPHILS PERCENT MAN 86 % (41-73); TOTAL CELLS COUNTED 100
[2024-05-13 19:03] LABS: Albumin, Blood 2.8 g/dL (3.4-5.0); Albumin/Globulin Ratio 0.7 (0.8-1.8); Bilirubin, Total 0.5 mg/dL (0.1-1.0); Bun/Creatinine Ratio 14.8 (12.0-20.0); Calcium, Blood 8.3 mg/dL (8.5-10.1); Creatinine, Blood 0.68 mg/dL (0.40-1.00); Globulin, Blood 4.2 g/dL (2.2-4.0); Potassium, Blood 3.7 mmol/L (3.5-5.5)
[2024-05-13] MEDS ORDERED: Doxycycline Hyclate 100 MG in Dextrose 5% 250 ML IV ONE (19:35)
[2024-05-13] MEDS ORDERED: CefTRIAXone Sodium 1,000 MG in NS 50 ML IV ONE (19:35)
[2024-05-13 19:41] LABS: Influenza A, PCR NEGATIVE (NEGATIVE); Influenza B, PCR NEGATIVE (NEGATIVE); Resp Syncytial Virus, PCR NEGATIVE (NEGATIVE); SARS-Cov-2 (COVID-19) PCR, MMC NEGATIVE (NEGATIVE)
[2024-05-13] MEDS ORDERED: Ipratropium/Albuterol SulF 2.5-0.5MG/3 ML Amp INH SCH (20:40)
[2024-05-13] MEDS ORDERED: Nicotine 14 MG PATCH TOP PRN (20:45)
[2024-05-13] MEDS ORDERED: Furosemide 10 MG / ML 2ML Vial IV ONE (20:45)
[2024-05-13] MEDS ORDERED: Magnesium Hydroxide Conc 10 ML UDC PO PRN (20:50)
[2024-05-13] MEDS ORDERED: Acetaminophen 325 MG TABLET PO PRN (20:50)
[2024-05-13] MEDS ORDERED: CefTRIAXone Sodium 1,000 MG in NS 100 ML IV ONE (20:55)
[2024-05-13] MEDS ORDERED: Lactobacil 2-S.Thermo-Bifido 1 1 Cap PO SCH (21:00)
[2024-05-13 22:41] LABS: Base Excess Venous 13.5 mmol/L; Bicarbonate Venous 33.7 mmol/L (24.0-30.0); PCO2 Venous 65.3 mmHg (38-42); pH Blood Venous 7.38 (7.34-7.37)
[2024-05-14 00:09] VITALS: BP 109/68
[2024-05-14] MEDS ORDERED: MethylPREDNISolone Sod Succ 40 MG VIAL IV SCH (02:00)
--- NOTE | 2024-05-14 02:54 | NUR ---
ASSUMED CARE AT 2114. PT ARRIVED TO ROOM VIA GURNEY ON O2 AND IV INFUSING. PT TRANSFERED TO BED. PT PLACED INTO HOSPITAL GOWN. PT ABLE TO TRANSFER SELF FROM BED TO BSC FOR URINATION, NO INCREASED WORK OF BREATHING NOTED. VITAL SIGNS AND ADMIT QUESTIONS DONE. PT ANSWERS QUESTIONS APPROPRIATELY BUT IS HAVING INCREASED DROWINESS BUT AWAKES READILY TO VOICE AND REMAINS AOX4. PT DOES GO BACK TO SLEEP WITHOUT CONTINUED STIMULUS. BED IN LOWEST POSITION, UPPER SIDE RAILS UP, BRAKE ON, CALL LIGHT AND BEDSIDE TABLE IN REACH.
[2024-05-14] MEDS ORDERED: Albuterol 2.5 MG/3 ML VIAL INH PRN (03:00)
[2024-05-14 03:49] VITALS: BP 116/72
--- NOTE | 2024-05-14 03:57 | NUR ---
PT SATING 97% ON 6L ATTEMPT TO WEAN TO 4L AND PT SAT DROPED BELOW 92%. PT NOW SATING 93% ON 5L O2 BY NASAL CANNULA WITH HUMIDITY.
[2024-05-14 03:58] LABS: Hematocrit 43.7 % (33.0-51.0); Hemoglobin 13.9 g/dL (11.5-16.0); Mean Corpuscular HGB 29.8 pg (26.0-34.0); Mean Corpuscular HGB Conc 31.8 g/dL (31.5-36.5); Mean Corpuscular Volume 94 fL (80-100); Mean Platelet Volume 9.8 fL (9.1-12.4); Platelet Count 385 K/mm3 (150-400); RDW Coefficient Variation 13.6 % (11.7-14.2); RDW Standard Deviation 46.5 fL (35.1-46.3); Red Blood Cell Count 4.67 M/mm3 (3.80-5.20); White Blood Cell Count 35.08 K/mm3 (4.00-11.30)
[2024-05-14 04:21] LABS: Albumin, Blood 2.6 g/dL (3.4-5.0); Albumin/Globulin Ratio 0.6 (0.8-1.8); Bilirubin, Total 0.3 mg/dL (0.1-1.0); Bun/Creatinine Ratio 18.3 (12.0-20.0); Calcium, Blood 8.2 mg/dL (8.5-10.1); Creatinine, Blood 0.66 mg/dL (0.40-1.00); Globulin, Blood 4.4 g/dL (2.2-4.0); Potassium, Blood 4.6 mmol/L (3.5-5.5)
[2024-05-14 04:28] LABS: BAND PERCENT MAN 8 % (0-8); BASOPHILS PERCENT MAN 0 % (0-2); EOSINOPHILS PERCENT MAN 0 % (0-6); LYMPHOCYTES % ATYPICAL MANUAL 3 % (0-0); LYMPHOCYTES PERCENT MAN 3 % (21-46); MONOCYTES ABSOLUTE MAN 0.35 K/mm3 (0.16-1.47); MONOCYTES PERCENT MAN 1 % (4-13); MYELOCYTE ABSOLUTE MAN 0.35 K/mm3 (0.00-0.00); MYELOCYTE PERCENT MAN 1 % (0-0); NEUTROPHILS ABSOLUTE MAN 32.27 K/mm3 (1.96-9.15); SEG NEUTROPHILS PERCENT MAN 84 % (41-73); TOTAL CELLS COUNTED 100
--- NOTE | 2024-05-14 06:23 | NUR ---
PT REMOVED O2 AND DESATED INTO THE 70S. O2 THERAPY REPLACED AND FLOW RATE INCREASED. PT VERY SLOW TO RESPOND. PT ALSO NEEDED TO USE BSC TO URINATE AND DROPPED SAT WITH EXERTION. PT DOES NOT TO BE IN DISTRESS THOUGH DOES HAVE INCREASED RESP RATE. PT BACK TO BED AND LEFT ON 10L TO RECOVER. CONTINUING TO MONITOR AND WILL ATTEMPT TO WEAN BACK DOWN.
--- NOTE | 2024-05-14 06:41 | NUR ---
PT NOW BACK DOWN TO 6L AND MAINTAINING O2 SAT 94%
[2024-05-14 07:54] VITALS: BP 114/62
[2024-05-14] MEDS ORDERED: NS 250 ML IV PRN (08:30)
[2024-05-14] MEDS ORDERED: Doxycycline Hyclate 100 MG in Dextrose 5% 250 ML IV SCH (09:00)
[2024-05-14] MEDS ORDERED: Enoxaparin 40 MG/0.4 ML SYR SC SCH (09:00)
[2024-05-14] MEDS ORDERED: Polyethylene Glycol 3350 17 gm PO PRN (09:30)
[2024-05-14 10:12] LABS: Acinetobacter baumannii DNA Not Detected copy/mL (NOT DETECT); Chlamydia pneumonia Not Detected (NOT DETECT); Enterobacter cloacae DNA Not Detected copy/mL (NOT DETECT); Escherichia coli DNA Not Detected copy/mL (NOT DETECT); Haemophilus influenzae DNA Detected Bin 10^6 copy/mL (NOT DETECT); Klebsiella aerogenes DNA Not Detected copy/mL (NOT DETECT); Klebsiella oxytoca DNA Not Detected copy/mL (NOT DETECT); Klebsiella pneumoniae DNA Not Detected copy/mL (NOT DETECT); Legionella pneumophila Not Detected (NOT DETECT); Moraxella catarrhalis DNA Not Detected copy/mL (NOT DETECT); Proteus sp DNA Not Detected copy/mL (NOT DETECT); Pseudomonas aeruginosa DNA Not Detected copy/mL (NOT DETECT); Serratia marcescens DNA Not Detected copy/mL (NOT DETECT); Staphylococcus aureus DNA Not Detected copy/mL (NOT DETECT); Streptococcus agalactiae DNA Not Detected copy/mL (NOT DETECT); Streptococcus pneumoniae DNA Not Detected copy/mL (NOT DETECT); Streptococcus pyogenes DNA Not Detected copy/mL (NOT DETECT)
[2024-05-14 10:13] LABS: Adenovirus DNA Not Detected (NOT DETECT); Human Coronavirus RNA Not Detected (NOT DETECT); Human Metapneumovirus RNA Not Detected (NOT DETECT); Influenza virus A RNA Not Detected (NOT DETECT); Influenza virus B RNA Not Detected (NOT DETECT); Mycoplasma pneumoniae Not Detected (NOT DETECT); Parainfluenza virus RNA Not Detected (NOT DETECT); Respiratory syncytial Vir RNA Not Detected (NOT DETECT); Rhinovirus+Enterovirus RNA Not Detected (NOT DETECT)
[2024-05-14 12:16] VITALS: BP 105/57
--- NOTE | 2024-05-14 16:49 | NUR ---
1640- report given to lissy, medical floor rn. all questions answered.
--- NOTE | 2024-05-14 18:19 | NUR ---
Pt transfered to floor at 1700, denies any pain, states SOB with ambulation, A-Ox4, ambulates with 1x assist to commode, on 6L NC. Lungs diminish with fine crackles, heart regular, bowel sounds normative. Pt can make needs known, call dominguez in hand, bed in lowest position.
[2024-05-14 20:58] VITALS: BP 111/66
[2024-05-14] MEDS ORDERED: Doxycycline Hyclate 100 MG TAB PO SCH (21:00)
[2024-05-14] MEDS ORDERED: Docusate Sodium/Senna 1 Tab PO SCH (21:00)
[2024-05-14] MEDS ORDERED: CefTRIAXone Sodium 2,000 MG in NS 100 ML IV SCH (21:00)
[2024-05-15 04:48] LABS: Hematocrit 41.3 % (33.0-51.0); Hemoglobin 13.2 g/dL (11.5-16.0); Mean Corpuscular HGB 30.3 pg (26.0-34.0); Mean Corpuscular Volume 95 fL (80-100); Mean Platelet Volume 9.9 fL (9.1-12.4); Platelet Count 400 K/mm3 (150-400); RDW Coefficient Variation 13.6 % (11.7-14.2); RDW Standard Deviation 46.5 fL (35.1-46.3); Red Blood Cell Count 4.36 M/mm3 (3.80-5.20)
[2024-05-15 05:08] LABS: Albumin, Blood 2.6 g/dL (3.4-5.0); Anion Gap 9 mmol/L (3-11); Blood Urea Nitrogen 21 mg/dL (8-24); Bun/Creatinine Ratio 36.5 (12.0-20.0); CO2, Blood 35 mmol/L (21-32); Calcium, Blood 8.9 mg/dL (8.5-10.1); Chloride, Blood 98 mmol/L (98-108); Creatinine, Blood 0.58 mg/dL (0.40-1.00); Glomerular Filtration Rate 104 (60-); Glucose, Blood 134 mg/dL (70-99); Magnesium, Blood 2.3 mg/dL (1.6-2.4); Phosphorus, Blood 3.9 mg/dL (2.5-4.9); Potassium, Blood 4.8 mmol/L (3.5-5.5); Sodium, Blood 137 mmol/L (136-145)
[2024-05-15 05:22] VITALS: BP 122/64
--- NOTE | 2024-05-15 05:47 | NUR ---
SHIFT SUMMARY: EDUCATED PATIENT ABOUT COPD, TOBACCO CESSATION, MEDICATIONS AND POSSIBLE SIDE EFFECTS. VERBALIZED UNDERSTANDING OF MOST, BUT STATED SHE IS NOT READY TO QUIT SMOKING AND REFUSED MN DOSE OF SOLUMEDROL STATING SHE DIDN'T LIKE THE SIDE EFFECTS DESPITE EDUCATION ABOUT IT'S IMPORTANCE FOR EASE OF BREATHING. TALKED ABOUT POSSIBLY NEEDING HOME O2, WHICH SHE STATED SHE HAS HAD IN THE PAST. SHE DOES NOT HAVE A PCP. CURRENTLY ON 6 L/MIN HFNC WITH SATS 89-94%. NO COUGH, BREATH SOUNDS ARE VERY DIM IN BILATERAL LL. HAS SOME URINARY INCONTINENCE. SLEPT SITTING UPRIGHT.
[2024-05-15 07:47] VITALS: BP 122/84
[2024-05-15] MEDS ORDERED: Cholecalciferol 1000 Unit Tablet (=25MCG) PO SCH (09:00)
[2024-05-15] MEDS ORDERED: MethylPREDNISolone Sod Succ 40 MG VIAL IV ONE (13:25)
[2024-05-15 16:14] VITALS: BP 117/87
[2024-05-15] MEDS ORDERED: Azithromycin 500 MG in NS 250 ML IV SCH (16:40)
[2024-05-15] MEDS ORDERED: Furosemide 10 MG/ML 4ML Vial IV SCH (17:00)
--- NOTE | 2024-05-15 19:23 | NUR ---
VSS, denies any pain, states SOB when ambulating, A-Ox4, ambulates independently to bedside commode, on 7L NC. Lungs diminished with expiratory wheezing, heart regular, bowel sounds normative, incontent of urine. Pt refused morning dose of lovenox and Methlypredision, notifed, spoke to pt and educated her on the importance of the medicaition, pt took afternoon dose. Pt can make needs known, call dominguez in hand, bed in lowest position.
[2024-05-15 20:41] VITALS: BP 116/66
[2024-05-16 04:53] VITALS: BP 124/73
[2024-05-16 04:53] LABS: Hematocrit 41.1 % (33.0-51.0); Hemoglobin 13.3 g/dL (11.5-16.0); Mean Corpuscular HGB 30.2 pg (26.0-34.0); Mean Corpuscular HGB Conc 32.4 g/dL (31.5-36.5); Mean Corpuscular Volume 93 fL (80-100); Mean Platelet Volume 9.8 fL (9.1-12.4); Platelet Count 396 K/mm3 (150-400); RDW Coefficient Variation 13.7 % (11.7-14.2); Red Blood Cell Count 4.41 M/mm3 (3.80-5.20); White Blood Cell Count 23.96 K/mm3 (4.00-11.30)
[2024-05-16 05:39] LABS: Albumin, Blood 2.5 g/dL (3.4-5.0); Anion Gap 9 mmol/L (3-11); Blood Urea Nitrogen 26 mg/dL (8-24); Bun/Creatinine Ratio 41.2 (12.0-20.0); CO2, Blood 36 mmol/L (21-32); Calcium, Blood 8.6 mg/dL (8.5-10.1); Chloride, Blood 96 mmol/L (98-108); Creatinine, Blood 0.63 mg/dL (0.40-1.00); Glomerular Filtration Rate 102 (60-); Glucose, Blood 141 mg/dL (70-99); Phosphorus, Blood 4.8 mg/dL (2.5-4.9); Potassium, Blood 4.6 mmol/L (3.5-5.5); Sodium, Blood 136 mmol/L (136-145)
[2024-05-16 06:20] LABS: PCO2 Arterial 64.2 mmHg (35-45); PO2 Arterial 64.4 mmHg (80-100); pH Blood Arterial 7.44 (7.35-7.45)
--- NOTE | 2024-05-16 07:22 | NUR ---
SHIFT SUMMARY: PATIENT IS A&OX4, LOWGRADE TEMP. OBSERVED. 02 IS @7l VIA HIGHFLOW NC. PERWICK WAS USED THROUGH THE NIGHT FOR A LATE DOSE OF LASIX AND ACTIVITY INTOLERANCE. NO REPORTS OF PAIN OR DISCOMFORT.
[2024-05-16 07:46] VITALS: BP 118/61
[2024-05-16] MEDS ORDERED: Budesonide 0.5 MG/2 ML RESP INH SCH (10:20)
--- NOTE | 2024-05-16 15:48 | NUR ---
SHIFT SUMMARY PT SLEEPING AT START OF SHIFT, BUT WOKE EASILY FOR SHIFT REPORT. PT ON 7L O2 VIA HFNC; BASELINE RA AT HOME. DR SALGADO IN TO SEE PT AND DISCUSS PLAN OF CARE. IV ABX AND LASIX GIVEN PER EMAR. PUREWICK IN PLACE FOR HS, BUT REMOVED WHEN ABX COMPLETE AND PT SL. PT THEN UP TO SHOWER, LINEN CHANGE DONE WELL. PT INDEPENDENT IN RM. REMAINS AWAKE WATCHING TV AND TALKING ON PHONE. ABLE TO CALL FOR NEEDS. WILL MONITOR.
[2024-05-16 15:57] VITALS: BP 130/57
[2024-05-16 20:32] VITALS: BP 116/69
[2024-05-16] MEDS ORDERED: Diabetic GuaiFENesin 100 MG/5 ML 5MLUDC PO SCH (21:45)
[2024-05-16] MEDS ORDERED: GuaiFENesin 600 MG TabCR PO PRN (21:55)
[2024-05-17 02:31] VITALS: BP 118/60
--- NOTE | 2024-05-17 06:50 | NUR ---
SHIFT SUMMARY: PATIENT IS A&OX4, AMBULATED AROUND THE UNIT WITH FAMILY. SAT DID DROP TO 85% ON 5L DURING AMBULATION. THIS MORNING SAT IS 94% ON 5L WHILE SLEEPING. PATIENT IS INDEPENDANT TO THE BATHROOM AND HAS HAD NO COMPLAINTS THIS SHIFT.
[2024-05-17 07:13] VITALS: BP 116/68
--- NOTE | 2024-05-17 16:03 | NUR ---
SHIFT SUMMARY PT AWAKE AND SITTING UP TO EOB, WATCHING TV, DURING SHIFT REPORT. PT IMPROVING. O2 DECREASED TO 5L IN AM AND NOW DOWN TO 3L WITH BIOX AT 93%. PT WANTING TO WEAN OFF O2 AND RETURN TO BASELINE RA BEFORE D/C TO HOME. PT CONTINUES TO BE INDEPENDENT IN AND TO HALLS. NO C/O. ABLE TO MAKE NEEDS KNOWN.
[2024-05-17 16:28] VITALS: BP 111/65
[2024-05-17] MEDS ORDERED: Nystatin 100,000 Unit/ML Susp 5 ML UDC MT SCH (18:00)
[2024-05-17 19:37] VITALS: BP 118/67
[2024-05-18 04:53] VITALS: BP 121/74
[2024-05-18 05:04] LABS: Hematocrit 41.3 % (33.0-51.0); Hemoglobin 13.1 g/dL (11.5-16.0); Mean Corpuscular HGB 29.8 pg (26.0-34.0); Mean Corpuscular HGB Conc 31.7 g/dL (31.5-36.5); Mean Corpuscular Volume 94 fL (80-100); Mean Platelet Volume 9.5 fL (9.1-12.4); Platelet Count 378 K/mm3 (150-400); RDW Standard Deviation 47.4 fL (35.1-46.3); White Blood Cell Count 22.74 K/mm3 (4.00-11.30)
[2024-05-18 05:25] LABS: Bun/Creatinine Ratio 43.3 (12.0-20.0); Creatinine, Blood 0.53 mg/dL (0.40-1.00); Potassium, Blood 4.9 mmol/L (3.5-5.5)
--- NOTE | 2024-05-18 05:51 | NUR ---
SHIFT SUMMARY: PATIENT IS A&OX4, AMBULATED IN THE HALLS WITH 02 VIA NC @ 2L. WHEN SHE RETURNED TO HER ROOM 02 WAS AT 78%. 02 TOTRATED TO 3L. PATIENT RECOVERED QUICKLY. 02 WAS THEN TURNED BACK DOWN TO 2L. PATIENT SLEPT WELL BUT SATS DID DROP TO 84 ON 2LNC. 02 WAS THEN TITRATED BACK UP TO 3LNC.
[2024-05-18 07:19] VITALS: BP 121/70
[2024-05-18] MEDS ORDERED: ALBU2.5V5 INH (11:37)
[2024-05-18] MEDS ORDERED: DOCUZEN 8.6-501 EACH PO (11:42)
[2024-05-18] MEDS ORDERED: GUAI600T33 PO (11:42)
[2024-05-18] MEDS ORDERED: NYSTATIN100000 U13 MT (11:43)
[2024-05-18] MEDS ORDERED: Vitamin D1000 UNI1 PO (11:44)
[2024-05-18] MEDS ORDERED: VISBIOME 112.51 EACH PO (11:44)
[2024-05-18] MEDS ORDERED: ALBU90OI INH (11:46)
[2024-05-18] MEDS ORDERED: CEFD300 PO (11:49)
[2024-05-18] MEDS ORDERED: TRELEGY ELLIPT1 EAC1 INH (11:49)
[2024-05-18] MEDS ORDERED: IPRAT-ALBUT 0.5-3 ML INH (11:55)
[2024-05-18] MEDS ORDERED: AZIT500 PO (11:56)
[2024-05-18] MEDS ORDERED: Prednisone10 MG PO (11:59)
--- NOTE | 2024-05-18 12:48 | NUR ---
CALLED PHARMACY- NURSE NOTIFY FROM DR SALGADO SAYS OK TO GIVE 2100 DOSE OF ROCEPHIN PRIOR TO PT DISCHARGE. CALED PHARMACY TO DETERMINE SAFE ADMINISTRATION TIME, LAST DOSE WAS AT 2200 LAST NIGHT. OK TO GIVE DOSE NOW. ORDER TIME CHANGED IN ORDERMANAGEMENT PER DR FRAUSTO WRITTEN ORDER (NURSE NOTIFY).
[2024-05-18] MEDS ORDERED: CefTRIAXone Sodium 2,000 MG in NS 100 ML IV SCH (13:00)
--- NOTE | 2024-05-18 17:07 | NUR ---
DISCHARGE NOTE- PT WAS GIVEN VERBAL AND WRITTEN DISCHARGE INSTRUCTIONS AND ACKNOWLEDGED UNDERSTANDING OF THEM. IV DC'D PRIOR TO DISCHARGE. PT RECIEVED IV ROCEPHIN PRIOR TO DC PER DR BOSS. PT ESCORTED OUT VIA WC BY THE CASTER OPERATOR, NO S&S OF DISTRESS NOTED AT THE TIME OF DISCHARGE.
== END 2024-05-18 17:05 | disposition home or self-care (01) | DRG 871 ==
LOC: ER 17:48 → PCU 20:45 → MEDS 20:45 → PCU 22:10 → MEDS 05-14 16:58 → ENPENDDIS 05-18 11:17 → MEDS 05-18 17:05
PROVIDERS: Internal Medicine; Student in an Organized Health Care Education/Training Program; ADMIT Internal Medicine
PROC: 3E03329 Introduction of Other Anti-infective into Peripheral Vein, Percutaneous Approach (ICD-10-PCS; principal; 2024-05-13)
PROC: 4A033R1 Measurement of Arterial Saturation, Peripheral, Percutaneous Approach (ICD-10-PCS; 2024-05-13)
PROC: 5A0935A Assistance with Respiratory Ventilation, Less than 24 Consecutive Hours, High Flow/Velocity Cannula (ICD-10-PCS; 2024-05-13)
DX: A41.9 Sepsis, unspecified organism (principal); I50.31 Acute diastolic (congestive) heart failure; J96.01 Acute respiratory failure with hypoxia; J14 Pneumonia due to Hemophilus influenzae; J44.1 Chronic obstructive pulmonary disease with (acute) exacerbation; J44.0 Chronic obstructive pulmonary disease with (acute) lower respiratory infection; B37.0 Candidal stomatitis; F17.210 Nicotine dependence, cigarettes, uncomplicated; Z88.2 Allergy status to sulfonamides; Z79.51 Long term (current) use of inhaled steroids; Z79.899 Other long term (current) drug therapy; Z98.890 Other specified postprocedural states; Z90.49 Acquired absence of other specified parts of digestive tract; Z90.710 Acquired absence of both cervix and uterus; Z87.19 Personal history of other diseases of the digestive system
CPT/HCPCS: 0241U; 36415; 36600; 71046; 80048; 80053; 80069; 82803; 83605; 83735; 83880; 84145; 84484; 85025; 85027; 87040; 87633; 93005; 93010; 93306; 94640; 94664; 94760; 94761; 94762; 96365; 96375; 99285-25; A9270; J0456; J0696; J1650; J1940; J2919; J7050; J7060

== ENCOUNTER → 2024-05-13 | Outpatient (CLI) | payer OTHER ==
[~2024-05-13] MED LIST changes: +ALBU90OI INH; +CEFD300 PO; +DOCUZEN 8.6-501 EACH PO; +NYSTATIN100000 U13 MT; +Prednisone10 MG PO; +TRELEGY ELLIPT1 EAC1 INH; +Vitamin D1000 UNI1 PO
[2024-05-13 15:08] LABS: Hematocrit 40.8 % (33.0-51.0); Hemoglobin 13.6 g/dL (11.5-16.0); Mean Corpuscular HGB 30.4 pg (26.0-34.0); Mean Corpuscular HGB Conc 33.3 g/dL (31.5-36.5); Mean Corpuscular Volume 91 fL (80-100); Mean Platelet Volume 9.8 fL (9.1-12.4); Platelet Count 402 K/mm3 (150-400); RDW Coefficient Variation 13.7 % (11.7-14.2); RDW Standard Deviation 45.1 fL (35.1-46.3); Red Blood Cell Count 4.47 M/mm3 (3.80-5.20); White Blood Cell Count 34.56 K/mm3 (4.00-11.30)
[2024-05-13 15:15] LABS: Bun/Creatinine Ratio 12.3 (12.0-20.0); Calcium, Blood 9.1 mg/dL (8.5-10.1); Creatinine, Blood 0.81 mg/dL (0.40-1.00); Potassium, Blood 3.9 mmol/L (3.5-5.5)
[2024-05-13 15:41] LABS: BAND PERCENT MAN 8 % (0-8); BASOPHILS PERCENT MAN 0 % (0-2); EOSINOPHILS PERCENT MAN 0 % (0-6); LYMPHOCYTES ABSOLUTE MAN 2.07 K/mm3 (0.84-5.20); LYMPHOCYTES PERCENT MAN 6 % (21-46); MONOCYTES ABSOLUTE MAN 2.76 K/mm3 (0.16-1.47); MONOCYTES PERCENT MAN 8 % (4-13); MYELOCYTE ABSOLUTE MAN 1.72 K/mm3 (0.00-0.00); MYELOCYTE PERCENT MAN 5 % (0-0); NEUTROPHILS ABSOLUTE MAN 27.99 K/mm3 (1.96-9.15); SEG NEUTROPHILS PERCENT MAN 73 % (41-73); TOTAL CELLS COUNTED 100
[2024-05-13 16:32] LABS: Thyroid Stimulating Hormone 1.339 uIU/mL (0.360-4.800)
== END | disposition home or self-care (01) ==
LOC: LAB SHORT 15:03 → LAB 15:03
PROVIDERS: Physician Assistant Surgical
DX: R06.02 Shortness of breath (principal)
CPT/HCPCS: 80048; 83880; 84443; 85025

== ENCOUNTER 2025-02-19 22:06 | Emergency (ER) | payer OTHER ==
[~2025-02-19] VITALS: Ht 182.9 cm; Wt 81.7 kg
[~2025-02-19 22:06] MED LIST changes: +ALBU90OI INH; +CEFD300 PO; +DOCUZEN 8.6-501 EACH PO; +NYSTATIN100000 U13 MT; +Prednisone10 MG PO; +TRELEGY ELLIPT1 EAC1 INH; +Vitamin D1000 UNI1 PO
[2025-02-19] MEDS ORDERED: Ipratropium/Albuterol SulF 2.5-0.5MG/3 ML Amp INH PRN (22:50)
[2025-02-19 23:31] LABS: BASOPHILS ABSOLUTE AUTO 0.08 K/mm3 (0.00-0.23); BASOPHILS PERCENT AUTO 0 % (0-2); EOSINOPHILS ABSOLUTE AUTO 0.01 K/mm3 (0.00-0.68); EOSINOPHILS PERCENT AUTO 0 % (0-6); Hematocrit 41.9 % (33.0-51.0); Hemoglobin 13.8 g/dL (11.5-16.0); IMMATURE GRAN PERCENT AUTO 0 % (0-1); LYMPHOCYTES ABSOLUTE AUTO 0.91 K/mm3 (0.84-5.20); LYMPHOCYTES PERCENT AUTO 4 % (21-46); MONOCYTES ABSOLUTE AUTO 1.73 K/mm3 (0.16-1.47); MONOCYTES PERCENT AUTO 8 % (4-13); Mean Corpuscular HGB 29.9 pg (26.0-34.0); Mean Corpuscular HGB Conc 32.9 g/dL (31.5-36.5); Mean Corpuscular Volume 91 fL (80-100); Mean Platelet Volume 10.7 fL (9.1-12.4); NEUTROPHILS ABSOLUTE AUTO 19.86 K/mm3 (1.96-9.15); NEUTROPHILS PERCENT AUTO 88 % (41-73); Platelet Count 221 K/mm3 (150-400); RDW Coefficient Variation 13.1 % (11.7-14.2); RDW Standard Deviation 43.1 fL (35.1-46.3); Red Blood Cell Count 4.62 M/mm3 (3.80-5.20); White Blood Cell Count 22.69 K/mm3 (4.00-11.30)
[2025-02-19 23:49] LABS: Albumin, Blood 3.9 g/dL (3.4-5.0); Albumin/Globulin Ratio 1.1 (0.8-1.8); Bilirubin, Total 0.4 mg/dL (0.1-1.0); Bun/Creatinine Ratio 21.4 (12.0-20.0); Calcium, Blood 8.9 mg/dL (8.5-10.1); Creatinine, Blood 0.75 mg/dL (0.40-1.00); Globulin, Blood 3.5 g/dL (2.2-4.0); Potassium, Blood 3.8 mmol/L (3.5-5.5); Total Protein, Blood 7.4 g/dL (6.4-8.2)
[2025-02-20] MEDS ORDERED: Amoxicillin/Clavulanate K 875 MG Tab PO ONE (00:05)
[2025-02-20] MEDS ORDERED: Azithromycin 250 MG Tab PO ONE (00:10)
[2025-02-20 01:15] VITALS: BP 141/82
[2025-02-20] MEDS ORDERED: AMOCLA875 PO (01:52)
[2025-02-20] MEDS ORDERED: AZIT250 PO (01:52)
== END 2025-02-20 02:00 | disposition home or self-care (01) ==
LOC: ER 22:06
PROVIDERS: Emergency Medicine
DX: J18.9 Pneumonia, unspecified organism (principal); J44.0 Chronic obstructive pulmonary disease with (acute) lower respiratory infection; I50.9 Heart failure, unspecified; F17.200 Nicotine dependence, unspecified, uncomplicated; Z88.2 Allergy status to sulfonamides; Z79.899 Other long term (current) drug therapy; Z79.52 Long term (current) use of systemic steroids
CPT/HCPCS: 71046; 71260; 80053; 84484; 85025; 85379; 93005; 93010; 94640; 94664; 99285-25; A9270; Q9967